=== PATIENT | female | born 1970 | race Caucasian/White ===

== ENCOUNTER 2017-10-02 23:26 | Inpatient (IN) | payer MEDICARE, OTHER ==
[~2017-10-02] VITALS: Ht 160 cm; Wt 84.8 kg
[2017-10-02] MEDS ORDERED: PANTOPRAZOLE 40 MG 10ML VIAL IV STA (23:50)
[2017-10-03 00:14] LABS: BASOPHILS % 0.6 % (0.0-1.0); EOSINOPHILS # (AUTO) 0.1 (0.0-0.4); EOSINOPHILS % 1.1 % (0.0-6.0); HEMATOCRIT 39.3 % (34.2-44.1); HEMOGLOBIN 12.5 g/dL (12.0-16.0); LYMPHOCYTES # (AUTO) 2.1 (1.0-3.2); LYMPHOCYTES % 29.3 % (18.0-39.1); MEAN CORPUSCULAR HEMOGLOBIN 27.1 pg (28-32); MEAN CORPUSCULAR HGB CONC 31.8 g/dL (31-35); MEAN CORPUSCULAR VOLUME 85.2 fL (81-99); MONOCYTES # (AUTO) 0.5 (0.2-0.8); MONOCYTES % 6.7 % (4.4-11.3); NEUTROPHILS # (AUTO) 4.3 (2.1-6.9); NEUTROPHILS % 62.2 % (38.7-80.0); PLATELET COUNT 186 x10e3/uL (140-360); RED BLOOD COUNT 4.61 x10e6/uL (3.6-5.1); RED CELL DISTRIBUTION WIDTH 13.1 % (11.7-14.4)
[2017-10-03 00:19] LABS: BILIRUBIN,URINE NEGATIVE (NEGATIVE); KETONES,URINE NEGATIVE (NEGATIVE); LEUKOCYTE ESTERASE ,URINE NEGATIVE (NEGATIVE); NITRITE,URINE NEGATIVE (NEGATIVE); PREGNANCY TEST, URINE NEGATIVE (NEGATIVE); PROTEIN,URINE DIPSTICK NEGATIVE (NEGATIVE); URINE UROBILINOGEN 0.2 mg/dL (0.2 - 1)
[2017-10-03 00:24] LABS: COLOR,URINE YELLOW (YELLOW)
[2017-10-03 00:25] LABS: CLARITY,URINE CLEAR (CLEAR)
[2017-10-03 00:31] LABS: BACTERIA,URINE FEW /HPF; EPITHELIAL CELLS,URINE FEW /LPF; RBC,URINE 0-5 /HPF (0-5); WBC,URINE (MAN) 0-5 /HPF (0-5)
[2017-10-03 00:32] LABS: ALANINE AMINOTRANSFERASE 13 IU/L (0-55); ALBUMIN 4.3 g/dL (3.5-5.0); ALBUMIN/GLOBULIN RATIO 1.3 (0.8-2.0); ALKALINE PHOSPHATASE 77 IU/L (40-150); AMYLASE 345 U/L (25-125); ANION GAP 14.5 mmol/L (8-16); BLOOD UREA NITROGEN 8 mg/dL (7-26); BUN/CREATININE RATIO 11 (6-25); CARBON DIOXIDE 26 mmol/L (22-29); CHLORIDE 102 mmol/L (98-107); CREATININE, SERUM 0.76 mg/dL (0.57-1.11); EST GLOMERULAR FILTRATION RATE > 60 ML/MIN (60-); GLUCOSE 89 mg/dL (74-118); LIPASE 488 U/L (8-78); POTASSIUM 3.5 mmol/L (3.5-5.1); SODIUM 139 mmol/L (136-145)
[2017-10-03] MEDS ORDERED: ONDANSETRON HCL INJ 2 MG/ML VIAL IV STA (00:45)
[2017-10-03] MEDS ORDERED: SODIUM CHLORIDE 0.9% 1000ML 1,000 ML IV ONE (00:45)
[2017-10-03] MEDS ORDERED: MORPHINE SULFATE 2 MG/ML SYR IV STA (00:45)
[2017-10-03] MEDS ORDERED: TYLENOL WITH C1 EACH PO (01:05)
--- NOTE | 2017-10-03 01:34 | Diagnostic Imaging Report ---
EXAM: ABDOMEN ACUTE SERIES W/PA CXR, AP view of the chest, supine and erect views of the abdomen DATE: 10/03/2017 12:30 AM Time stamp on exam: 0105 hours INDICATION: Upper abdominal pain for 3 weeks COMPARISON: May 22, 2017 FINDINGS: LINES/TUBES: None LUNGS: No consolidations or edema. PLEURA: No effusions or pneumothorax. HEART AND MEDIASTINUM: The heart is at the upper limits of normal in size. BOWEL PATTERN: Non-obstructed bowel gas pattern. BONES AND SOFT TISSUES: No acute bone findings. No abnormal calcifications. No mass effect. Surgical clips right upper quadrant of the abdomen. IMPRESSION: No acute thoracic abnormality. No evidence for bowel obstruction. Signed by: Dr. Uma Waldron M.D. on 10/03/2017 1:30 AM
[2017-10-03] MEDS: SODIUM CHLORIDE 0.9% 1000ML 1,000 ML IV SCH ×6 (02:51→23:20)
--- NOTE | 2017-10-03 03:10 | Diagnostic Imaging Report ---
EXAM: US GALLBLADDER DATE: 10/03/2017 12:00 AM Time stamp on exam: 0227 hours INDICATION: Abdominal pain COMPARISON: None TECHNIQUE: Transverse and longitudinal sonographic images of the right upper abdomen were obtained. FINDINGS: LIVER: 16 cm in the right midclavicular line. Normal echogenicity, normal contour, no masses. Main Portal Vein: Normal size with hepatopetal flow. GALLBLADDER: Cholecystectomy. No fluid in the gallbladder bed. BILE DUCTS: No intra nor extra-hepatic dilation. Common bile duct measures 0.6 cm. PANCREAS: Visualized portions are normal. RIGHT KIDNEY: 10.6 cm in length Echogenicity: Normal Collecting System: No hydronephrosis Stones: None Cyst/Mass: None FREE FLUID: None in the right upper quadrant of the abdomen IMPRESSION: Normal appearance of right upper quadrant status post cholecystectomy. Signed by: Dr. Uma Waldron M.D. on 10/03/2017 3:06 AM
[2017-10-03] MEDS: MORPHINE SULFATE 2 MG/ML SYR IV PRN ×4 (04:37→20:15)
[2017-10-03] MEDS: ONDANSETRON HCL INJ 2 MG/ML VIAL IV PRN ×4 (04:37→20:15)
--- NOTE | 2017-10-03 11:19 | History and Physical ---
She is a 46-year-old female patient of mine who presented to the emergency room with complaint of abdominal pain. HISTORY OF PRESENT ILLNESS: Ms. Lee is a 46-year-old female patient who has chronic abdominal pain, which started worsening 3 weeks ago. For the last 2 days, the patient's pain was more severe. The patient had gone to [place] ER for the same problem, and the patient was discharged from the ED. Now, the patient presented again here at [facility] ER with abdominal pain, 7 out of 10 in severity, and nauseous. Denies any vomiting or diarrhea. PAST MEDICAL HISTORY: The patient had severe abdominal pain. For that, the patient had gallbladder surgery done. Multiple endoscopies were done. Past medical history of hypertension, asthma, and hyperlipidemia. REVIEW OF SYSTEMS: Abdominal pain and nausea. PAST SURGICAL HISTORY: Gallbladder surgery. MEDICATIONS: See from the list. ALLERGIES: IBUPROFEN AND TYLENOL. SOCIAL HISTORY: The patient is a smoker. Denies using alcohol. FAMILY HISTORY: Hypertension. PHYSICAL EXAMINATION GENERAL: She is a middle-aged female patient lying in bed, not in any acute distress. VITAL SIGNS: Temperature 99, pulse rate 88, respirations 16, blood pressure 120/70. HEENT: Normocephalic, atraumatic. LUNGS: Bilateral equal air entry, no rales, no rhonchi. HEART: S1 and S2, regular. ABDOMEN: Soft. Bowel sounds are present. No tenderness. NEUROLOGIC: No focal neurological deficit. ADMISSION IMPRESSION AND DIAGNOSES 1. Acute pancreatitis. 2. Gastritis. 3. Dehydration. 4. Hypertension. 5. Bronchial asthma by history. PLAN: The patient will be admitted with the above diagnoses. The patient will be kept n.p.o. on IV fluids. Analgesics will be given. Zofran will be given. Will obtain GI consult with Dr. Winter, and we will obtain an MRCP to rule out any CBD stone. Job#: [id number]
[2017-10-03] MEDS ORDERED: GADOBENATE DIMEGLUMINE 1 ML IV ONE (12:32)
[2017-10-03] MEDS ORDERED: SUCRALFATE1 GM PO (15:23)
[2017-10-03] MEDS ORDERED: OMEPRAZOLE40 MG PO (15:23)
[2017-10-03] MEDS ORDERED: PAROXETINE HCL20 MG PO (15:23)
[2017-10-03] MEDS ORDERED: PRAVASTATIN SOD20 MG PO (15:23)
--- NOTE | 2017-10-03 15:39 | Diagnostic Imaging Report ---
EXAM: MRI of the abdomen with and without contrast. INDICATION: Abdominal pain. COMPARISON: Ultrasound dated 10/03/2017. TECHNIQUE: Multiplanar and multisequence imaging was performed of the abdomen. MRCP series were added. IV Contrast: 18 cc of MultiHance. Discussion: LOWER THORAX: Unremarkable. HEPATOBILIARY: No focal hepatic lesions. Common bile left is mildly distended up to 8 mm without evidence of filling defect. Tiny questionable filling defect within distal common bile duct, seen only on series 4 , image 16, is probably artifactual as it is not evident on MRCP series. GALLBLADDER: Surgically absent. SPLEEN: No splenomegaly. PANCREAS: No focal masses or ductal dilatation. ADRENALS: No adrenal nodules KIDNEYS/URETERS: Kidneys enhance symmetrically. No hydronephrosis. No cystic or solid mass lesions. GI TRACT: Visualized bowel loops are unremarkable. No evidence of bowel obstruction. LYMPH NODES: No lymphadenopathy. VESSELS: Unremarkable. PERITONEUM / RETROPERITONEUM: No free air or fluid. BONES: Unremarkable. SOFT TISSUES: Unremarkable. IMPRESSION: No acute inflammatory process in the abdomen. Status post cholecystectomy. Mild common bile duct dilatation, likely due to postcholecystectomy reservoir effects. No definite evidence of choledocholithiasis. Signed by: Dr. Roosevelt Jerome MD on 10/03/2017 3:35 PM
[2017-10-04] MEDS: ONDANSETRON HCL INJ 2 MG/ML VIAL IV PRN ×2 (02:05→09:08)
[2017-10-04] MEDS: MORPHINE SULFATE 2 MG/ML SYR IV PRN ×2 (02:05→09:08)
[2017-10-04 03:13] LABS: BASOPHILS % 0.8 % (0.0-1.0); EOSINOPHILS # (AUTO) 0.1 (0.0-0.4); EOSINOPHILS % 2.6 % (0.0-6.0); HEMATOCRIT 33.2 % (34.2-44.1); HEMOGLOBIN 10.4 g/dL (12.0-16.0); LYMPHOCYTES # (AUTO) 1.5 (1.0-3.2); LYMPHOCYTES % 37.9 % (18.0-39.1); MEAN CORPUSCULAR HEMOGLOBIN 27.2 pg (28-32); MEAN CORPUSCULAR HGB CONC 31.3 g/dL (31-35); MEAN CORPUSCULAR VOLUME 86.7 fL (81-99); MONOCYTES # (AUTO) 0.3 (0.2-0.8); MONOCYTES % 7.2 % (4.4-11.3); NEUTROPHILS % 51.2 % (38.7-80.0); PLATELET COUNT 131 x10e3/uL (140-360); RED BLOOD COUNT 3.83 x10e6/uL (3.6-5.1); RED CELL DISTRIBUTION WIDTH 13.3 % (11.7-14.4)
[2017-10-04 03:47] LABS: ALANINE AMINOTRANSFERASE 8 IU/L (0-55); ALBUMIN 3.2 g/dL (3.5-5.0); ALBUMIN/GLOBULIN RATIO 1.2 (0.8-2.0); ALKALINE PHOSPHATASE 62 IU/L (40-150); AMYLASE 59 U/L (25-125); ANION GAP 9.8 mmol/L (8-16); BLOOD UREA NITROGEN 11 mg/dL (7-26); BUN/CREATININE RATIO 16 (6-25); CARBON DIOXIDE 21 mmol/L (22-29); CHLORIDE 112 mmol/L (98-107); EST GLOMERULAR FILTRATION RATE > 60 ML/MIN (60-); GLUCOSE 80 mg/dL (74-118); LIPASE 12 U/L (8-78); POTASSIUM 3.8 mmol/L (3.5-5.1); SODIUM 139 mmol/L (136-145)
[2017-10-04] MEDS: SODIUM CHLORIDE 0.9% 1000ML 1,000 ML IV SCH ×3 (05:50→11:23)
[2017-10-04] MEDS ORDERED: ACETAMINOPHEN/CODEINE 300MG - 30MG TAB PO PRN (09:45)
--- NOTE | 2017-10-04 10:58 | Discharge Summary ---
This 46-year-old female patient presented to the emergency room with abdominal pain. ADMITTING IMPRESSION AND DIAGNOSES 1. Pancreatitis. 2. Gastritis. HOSPITAL COURSE SUMMARY: The patient was admitted with abdominal pain. The patient had recurrent abdominal pain, and the patient had multiple hospital visits and gallbladder surgery for that. The patient was recently in the ER at [facility]. The patient had high amylase and lipase, so the patient was admitted and kept n.p.o. IV fluids were given. MRCP was done, which were negative for a CBD stone. The patient improved symptomatically. The patient will have a GI evaluation with Dr. Winter, and then the patient will be discharged home on omeprazole, Carafate and Tylenol p.r.n. for pain. The patient will be followed up as an outpatient. ZOILA ARMIJO MD Job#: [id number]
[2017-10-04 12:09] VITALS: BP 145/88
[2017-10-04] MEDS ORDERED: PRAVASTATIN 20 MG TAB PO SCH (21:00)
[2017-10-05] MEDS ORDERED: SUCRALFATE 1 GM TAB PO SCH (09:00)
[2017-10-05] MEDS ORDERED: NON-FORMULARY MEDICATION (Pravastatin Sodium 20 MG) PO SCH (09:00)
[2017-10-05] MEDS ORDERED: PAROXETINE HCL 20 MG TAB PO SCH (09:00)
[2017-10-05] MEDS ORDERED: PANTOPRAZOLE SOD 40 MG TABEC PO SCH (09:00)
--- OUTSIDE RECORDS SUMMARY | 2017-10-21 11:24 | XMS REPORT ---
Author Author [facility] Address Unknown Phone Unavailable Care Team Providers Care Meter Supervisor Name Role Phone ZOILA ARMIJO Unavailable Unavailable ERICH CARDENAS Unavailable Unavailable Problems This patient has no known problems. Allergies, Adverse Reactions, Alerts This patient has no known allergies or adverse reactions. Medications This patient has no known medications. Results Test Description Test Time Test Comments Text Results Atomic Results Result Comments MRI MRCP [place] [address] Patient Name: JASPREET ASENCIO MR #: [id number] : 1970 Age/Sex: 46/F Req #: [id number] [facility] Physician: ZOILA ARMIJO MD Ordered by: ZOILA ARMIJO MD Report #: [id number] Location: [facility] Room/Bed: [place] [address] ___ Procedure: [id number] MRI/MRI MRCP [facility] Exam Date: 10/03/17 Exam Time: 1316 REPORT STATUS: Signed EXAM: MRI of the abdomen with and without contrast. INDICATION: Abdominal pain. COMPARISON: Ultrasound dated 10/03/2017. TECHNIQUE: Multiplanar and multisequence imaging was performed of the abdomen. MRCP series were added. IV Contrast: 18 cc of MultiHance. Discussion: LOWER THORAX: Unremarkable. HEPATOBILIARY: No focal hepatic lesions. Common bile left is mildly distended up to 8 mm without evidence of filling defect. Tiny questionable filling defect within distal common bile duct, seen only on series 4 , image 16, is probably artifactual as it is not evident on MRCP series. GALLBLADDER: Surgically absent. SPLEEN: No splenomegaly. PANCREAS: No focal masses or ductal dilatation. ADRENALS: No adrenal nodules KIDNEYS/URETERS: Kidneys enhance symmetrically. No hydronephrosis. No cystic or solid mass lesions. GI TRACT: Visualized bowel loops are unremarkable. No evidence of bowel obstruction. LYMPH NODES: No lymphadenopathy. VESSELS: Unremarkable. PERITONEUM / RETROPERITONEUM: No free air or fluid. BONES: Unremarkable. SOFT TISSUES: Unremarkable. IMPRESSION: No acute inflammatory process in the abdomen. Status post cholecystectomy. Mild common bile duct dilatation, likely due to postcholecystectomy reservoir effects. No definite evidence of choledocholithiasis. Signed by: Dr. Roosevelt Liang MD on 10/03/2017 3:35 PM Dictated By: ROOSEVELT LIANG MD 1535 Transcribed By: ARIC on 1535 COPY TO: ZOILA ARMIJO MD ABDOMEN ACUTE SERIES W/PA CXR [place] [address] Patient Name: JASPREET ASENCIO MR #: [id number] : 1970 Age/Sex: 46/F Req #: [id number] Adm Physician: Ordered by: IWONA SMITH MD Report #: [id number] Location: ER Room/Bed: ___ Procedure: [id number] DX/ABDOMEN ACUTE SERIES W/PA CXR Exam Date: Exam Time: 0105 REPORT STATUS: Signed EXAM: ABDOMEN ACUTE SERIES W/PA CXR, AP view of the chest, supine and erect views of the abdomen DATE: 10/03/2017 12:30 AM Time stamp on exam: 0105 hours INDICATION: Upper abdominal pain for 3 weeks COMPARISON: May 22, 2017 FINDINGS: LINES/TUBES: None LUNGS: No consolidations or edema. PLEURA: No effusions or pneumothorax. HEART AND MEDIASTINUM: The heart is at the upper limits of normal in size. BOWEL PATTERN: Non-obstructed bowel gas pattern. BONES AND SOFT TISSUES: No acute bone findings. No abnormal calcifications. No mass effect. Surgical clips right upper quadrant of the abdomen. IMPRESSION: No acute thoracic abnormality. No evidence for bowel obstruction. Signed by: Dr. Saulo Waldron M.D. on 10/03/2017 1:30 AM Dictated By: SAULO WALDRON MD 9 Transcribed By: ARIC on 129 COPY TO: IWONA SMITH MD US GALLBLADDER [place] [address] Patient Name: JASPREET ASENCIO MR #: [id number] : 1970 Age/Sex: 46/F Req #: [id number] Adm Physician: ZOILA ARMIJO MD Ordered by: IWONA SMITH MD Report #: [id number] Location: [facility] Room/Bed: [place] [address] ____ Procedure: [id number] US/US GALLBLADDER Exam Date: Exam Time: REPORT STATUS: Signed EXAM: US GALLBLADDER DATE: 10/03/2017 12:00 AM Time stamp on exam: 0227 hours INDICATION: Abdominal pain COMPARISON: None TECHNIQUE: Transverse and longitudinal sonographic images of the right upper abdomen were obtained. FINDINGS: LIVER: 16 cm in the right midclavicular line. Normal echogenicity, normal contour, no masses. Main Portal Vein: Normal size with hepatopetal flow. GALLBLADDER: Cholecystectomy. No fluid in the gallbladder bed. BILE DUCTS: No intra nor extra-hepatic dilation. Common bile duct measures 0.6 cm. PANCREAS: Visualized portions are normal. RIGHT KIDNEY: 10.6 cm in length Echogenicity: Normal Collecting System: No hydronephrosis Stones: None Cyst/Mass: None FREE FLUID: None in the right upper quadrant of the abdomen IMPRESSION: Normal appearance of right upper quadrant status post cholecystectomy. Signed by: Dr. Saulo Waldron M.D. on 10/03/2017 3:06 AM Dictated By: SAULO WALDRON MD 5 Transcribed By: ARIC on 10/03/17305 COPY TO: IWONA SMITH MD ABDOMEN ACUTE SERIES W/PA CXR [place] [address] Patient Name: JASPREET ASENCIO MR #: [id number] : 1970 Age/Sex: 46/F Req #: [id number] Adm Physician: Ordered by: IWONA SMITH MD Report #: [id number] Location: ER Room/Bed: ___ Procedure: [id number] DX/ABDOMEN ACUTE SERIES W/PA CXR Exam Date: Exam Time: 1939 REPORT STATUS: Signed ABDOMEN ACUTE SERIES W/PA CXR Clinical history: Abdominal pain Technique : AP view abdomen Comparison: None Findings: Abdomen: Nonobstructive bowel gas pattern. No free air. Incidental right pelvic phlebolith. Chest : Mildly enlarged cardiac silhouette. Otherwise normal appearance of the mediastinum, lungs, pleural spaces. Impression: No evidence of obstruction or free air. Signed by: Dr Reema Mcgee MD on 05/22/2017 8:07 PM Dictated By: REEMA MCGEE MD 06 Transcribed By: ARIC on 05/22/172006 COPY TO: IWONA SMITH MD
== END 2017-10-04 12:26 | disposition home or self-care (01) | DRG 440 ==
LOC: ER 23:26 → ERHOLD 10-03 01:01 → UNDOADMIN 10-03 01:38 → ERHOLD 10-03 15:32 → EDBEDREQ 10-04 04:51 → ER 10-04 12:26
PROVIDERS: ADMIT Internal Medicine; ATTEND Internal Medicine
DX: K85.90 Acute pancreatitis without necrosis or infection, unspecified (principal); E78.5 Hyperlipidemia, unspecified; E86.0 Dehydration; I10 Essential (primary) hypertension; J45.909 Unspecified asthma, uncomplicated; K29.70 Gastritis, unspecified, without bleeding
CPT/HCPCS: 36415; 74022; 74183; 76705; 80053; 81001; 81025; 82150; 83690; 85025; 87086; 96360; 96374; 96376; 99284; J2270; J2405; J7030

== ENCOUNTER 2017-10-06 02:21 | Emergency (ER) | payer MEDICARE, OTHER ==
[~2017-10-06] VITALS: Ht 160 cm; Wt 84.8 kg
[~2017-10-06 02:21] MED LIST: OMEPRAZOLE40 MG PO; PAROXETINE HCL20 MG PO; PRAVASTATIN SOD20 MG PO; SUCRALFATE1 GM PO; TYLENOL WITH C1 EACH PO
[2017-10-06 03:43] LABS: BASOPHILS % 0.4 % (0.0-1.0); EOSINOPHILS # (AUTO) 0.1 (0.0-0.4); EOSINOPHILS % 1.6 % (0.0-6.0); HEMATOCRIT 36.9 % (34.2-44.1); HEMOGLOBIN 11.7 g/dL (12.0-16.0); LYMPHOCYTES # (AUTO) 1.8 (1.0-3.2); LYMPHOCYTES % 35.3 % (18.0-39.1); MEAN CORPUSCULAR HEMOGLOBIN 27.3 pg (28-32); MEAN CORPUSCULAR HGB CONC 31.7 g/dL (31-35); MONOCYTES # (AUTO) 0.5 (0.2-0.8); MONOCYTES % 9.3 % (4.4-11.3); NEUTROPHILS # (AUTO) 2.7 (2.1-6.9); PLATELET COUNT 163 x10e3/uL (140-360); RED BLOOD COUNT 4.29 x10e6/uL (3.6-5.1); RED CELL DISTRIBUTION WIDTH 13.2 % (11.7-14.4)
[2017-10-06 03:44] LABS: BILIRUBIN,URINE NEGATIVE (NEGATIVE); CLARITY,URINE CLEAR (CLEAR); COLOR,URINE STRAW (YELLOW); KETONES,URINE NEGATIVE (NEGATIVE); LEUKOCYTE ESTERASE ,URINE NEGATIVE (NEGATIVE); NITRITE,URINE NEGATIVE (NEGATIVE); PROTEIN,URINE DIPSTICK NEGATIVE (NEGATIVE); URINE UROBILINOGEN 0.2 mg/dL (0.2 - 1)
[2017-10-06 03:53] LABS: BACTERIA,URINE RARE /HPF; EPITHELIAL CELLS,URINE FEW /LPF; RBC,URINE 0-5 /HPF (0-5); WBC,URINE (MAN) 0-5 /HPF (0-5)
[2017-10-06 04:02] LABS: ALANINE AMINOTRANSFERASE 9 IU/L (0-55); ALBUMIN 3.9 g/dL (3.5-5.0); ALBUMIN/GLOBULIN RATIO 1.3 (0.8-2.0); ALKALINE PHOSPHATASE 71 IU/L (40-150); AMYLASE 54 U/L (25-125); ANION GAP 11.7 mmol/L (8-16); BLOOD UREA NITROGEN 5 mg/dL (7-26); BUN/CREATININE RATIO 7 (6-25); CALCIUM 8.9 mg/dL (8.4-10.2); CARBON DIOXIDE 26 mmol/L (22-29); CHLORIDE 106 mmol/L (98-107); CREATININE, SERUM 0.75 mg/dL (0.57-1.11); EST GLOMERULAR FILTRATION RATE > 60 ML/MIN (60-); GLUCOSE 110 mg/dL (74-118); LIPASE 16 U/L (8-78); POTASSIUM 3.7 mmol/L (3.5-5.1); SODIUM 140 mmol/L (136-145)
== END 2017-10-06 04:30 | disposition home or self-care (01) ==
LOC: ER 02:21
DX: R10.13 Epigastric pain (principal); R11.2 Nausea with vomiting, unspecified; I10 Essential (primary) hypertension; J45.909 Unspecified asthma, uncomplicated
CPT/HCPCS: 36415; 80053; 81001; 82150; 83690; 85025; 87086; 99283

== ENCOUNTER 2017-12-15 20:27 | Emergency (ER) | payer MEDICARE, OTHER ==
[~2017-12-15] VITALS: Ht 160 cm; Wt 84.8 kg
--- OUTSIDE RECORDS SUMMARY | 2017-12-15 20:29 | XMS REPORT | Continuity of Care Document ---
Author Author [facility] Organization [facility] Address [address] [place] [address] Phone Unavailable Care Team Providers Care Superintendent [employer] Name Role Phone ZOILA ARMIJO MD PCP Insurance Providers Guarantor Preethi Lee Address [address] [place] [address] Email PTDECLINED Payer [employer] Policy Number [id number] Subscriber's Name Preethi Lee Relationship 18 Self / Same As Patient Group Number [id number] Group Name UNEMPLOYED Effective Date 15 Payer Medicare A & B Policy Number [id number] Subscriber's Name Preethi Lee Relationship 18 Self / Same As Patient Group Number [id number] Group Name UNEMPLOYED Effective Date 08 Advance Directives Directive Response Recorded Date/Time Does the patient have an advance directive? No 11/12/16 11:02pm If yes, is advance directive on file with [facility]? No 11/12/16 11:02pm If not on file with [facility] will patient provide a copy? No 11/12/16 11:02pm Do you have a Directive to Physician? No 10/06/17 5:45am Do you have a Medical Power of Valet Attendant? No 10/06/17 5:45am Do you have an out of hospital Do Not Resuscitate Order? No 10/06/17 5:45am Do you have any special needs we should be aware of? No 10/06/17 5:45am Do you have a support person here with you today? No 10/06/17 5:45am Did patient receive Notice of Privacy Practices? Yes 10/06/17 5:45am Did patient receive patient rights and responsibilities? Yes 10/06/17 5:45am Problems Medical Problem Onset Date Status Pancreatitis Unknown Medications Current Home Medications Medication Dose Units Route Directions Days Qty Instructions Start Date Acetaminophen With Codeine (Tylenol With Codeine #3 Tablet) 1 Each Tablet 300 Mg Oral Every 6 Hours as needed for Pain Omeprazole 40 Mg Capsule.dr 40 Mg Oral Daily Paroxetine Hcl 20 Mg Tablet 30 Mg Oral Daily 30 Tab Pravastatin Sodium 20 Mg Tablet 20 Mg Oral Daily Sucralfate 1 Gm Tablet 1 Tab Oral Daily Social History Smoking Status Start Date Stop Date Never Smoker Hospital Discharge Instructions No hospital discharge instruction information available. Plan of Care Discharge Date 10/06/17 4:30am Disposition HOME, SELF-CARE Condition at Discharge Stable Instructions/Education Provided Abdominal Pain - Adult Forms Provided Work/School Excuse Prescriptions See Medication Section Additional Instructions/Education FOLLOW UP WITH YOUR PRIMARY CARE DOCTOR CALL FOR APPT TAKE MEDICATIONS PRESCRIBED Functional Status No functional status information available. Allergies, Adverse Reactions, Alerts Allergen Type Severity Reaction Status Last Updated Acetaminophen Allergy Unknown Active 05/22/17 Ibuprofen Allergy Unknown Active 05/22/17 Immunizations No immunization information available. Vital Signs Acute Vital Signs Vital Response Date/Time Temperature (Fahrenheit) 98.0 degrees F (97.6 - 99.5) 10/04/2017 12:09pm Pulse Pulse Rate (adult) 82 bpm (60 - 90) 10/04/2017 12:09pm Respiratory Rate 18 bpm (12 - 24) 10/04/2017 12:09pm Blood Pressure 145/88 mm Hg 10/04/2017 12:09pm Height 5 ft 3 in 10/06/2017 2:50am Weight 187 lb 10/06/2017 2:50am Body Mass Index 33.1 kg/m^2 10/06/2017 2:50am Results Laboratory Results Test Name Result Units Flags Reference Collection Date/Time Result Date/ Time Comments Urine Test NEGATIVE NEGATIVE 10/03/2017 12:10am 10/03/2017 12:19am White Blood Count 5.15 x10e3/uL 4.8-10.8 10/06/2017 3:35am 10/06/2017 3 :43am Red Blood Count 4.29 x10e6/uL 3.6-5.1 10/06/2017 3:35am 10/06/2017 3: 43am Hemoglobin 11.7 g/dL L 12.0-16.0 10/06/2017 3:35am 10/06/2017 3:43am Hematocrit 36.9 % 34.2-44.1 10/06/2017 3:35am 10/06/2017 3:43am Mean Corpuscular Volume 86.0 fL 81-99 10/06/2017 3:35am 10/06/2017 3: 43am Mean Corpuscular Hemoglobin 27.3 pg L 28-32 10/06/2017 3:35am 2017 3:43am Mean Corpuscular Hemoglobin Concent 31.7 g/dL 31-35 10/06/2017 3:35am 10/06/2017 3:43am Red Cell Distribution Width 13.2 % 11.7-14.4 10/06/2017 3:35am 2017 3:43am Platelet Count 163 x10e3/uL 140-360 10/06/2017 3:35am 10/06/2017 3: 43am Neutrophils (%) (Auto) 53.0 % 38.7-80.0 10/06/2017 3:35am 10/06/2017 3: 43am Lymphocytes (%) (Auto) 35.3 % 18.0-39.1 10/06/2017 3:35am 10/06/2017 3: 43am Monocytes (%) (Auto) 9.3 % 4.4-11.3 10/06/2017 3:35am 10/06/2017 3: 43am Eosinophils (%) (Auto) 1.6 % 0.0-6.0 10/06/2017 3:35am 10/06/2017 3: 43am Basophils (%) (Auto) 0.4 % 0.0-1.0 10/06/2017 3:35am 10/06/2017 3:43am IM GRANULOCYTES % 0.4 % 0.0-1.0 10/06/2017 3:35am 10/06/2017 3:43am Neutrophils # (Auto) 2.7 2.1-6.9 10/06/2017 3:35am 10/06/2017 3:43am Lymphocytes # (Auto) 1.8 1.0-3.2 10/06/2017 3:35am 10/06/2017 3:43am Monocytes # (Auto) 0.5 0.2-0.8 10/06/2017 3:35am 10/06/2017 3:43am Eosinophils # (Auto) 0.1 0.0-0.4 10/06/2017 3:35am 10/06/2017 3:43am Basophils # (Auto) 0.0 0.0-0.1 10/06/2017 3:35am 10/06/2017 3:43am Absolute Immature Granulocyte (auto 0.02 x10e3/uL 0-0.1 10/06/2017 3: 35am 10/06/2017 3:43am Urine Color STRAW YELLOW 10/06/2017 3:35am 10/06/2017 3:44am Urine Clarity CLEAR CLEAR 10/06/2017 3:35am 10/06/2017 3:44am Urine Specific [place] 1.005 L 1.010-1.025 10/06/2017 3:35am 2017 3:44am Urine pH 7 5 - 7 10/06/2017 3:35am 10/06/2017 3:44am Urine Leukocyte Esterase NEGATIVE NEGATIVE 10/06/2017 3:35am 2017 3:44am Urine Nitrite NEGATIVE NEGATIVE 10/06/2017 3:35am 10/06/2017 3:44am Urine Protein NEGATIVE NEGATIVE 10/06/2017 3:35am 10/06/2017 3:44am Urine Glucose (UA) NEGATIVE NEGATIVE 10/06/2017 3:35am 10/06/2017 3: 44am Urine Ketones NEGATIVE NEGATIVE 10/06/2017 3:35am 10/06/2017 3:44am Urine Urobilinogen 0.2 mg/dL 0.2 - 1 10/06/2017 3:35am 10/06/2017 3: 44am Urine Bilirubin NEGATIVE NEGATIVE 10/06/2017 3:35am 10/06/2017 3: 44am Urine Blood NEGATIVE NEGATIVE 10/06/2017 3:35am 10/06/2017 3:44am Urine WBC 0-5 /HPF 0-5 10/06/2017 3:35am 10/06/2017 3:53am Urine RBC 0-5 /HPF 0-5 10/06/2017 3:35am 10/06/2017 3:53am Urine Bacteria RARE /HPF NONE 10/06/2017 3:35am 10/06/2017 3:53am Urine Epithelial Cells FEW /LPF NONE 10/06/2017 3:35am 10/06/2017 3: 53am Sodium Level 140 mmol/L 136-145 10/06/2017 3:35am 10/06/2017 4:02am Potassium Level 3.7 mmol/L 3.5-5.1 10/06/2017 3:35am 10/06/2017 4:02am Chloride Level 106 mmol/L 98-107 10/06/2017 3:35am 10/06/2017 4:02am Carbon Dioxide Level 26 mmol/L 22-29 10/06/2017 3:35am 10/06/2017 4: 02am Anion Gap 11.7 mmol/L 8-16 10/06/2017 3:35am 10/06/2017 4:02am Blood Urea Nitrogen 5 mg/dL L 7-26 10/06/2017 3:35am 10/06/2017 4:02am Creatinine 0.75 mg/dL 0.57-1.11 10/06/2017 3:35am 10/06/2017 4:02am BUN/Creatinine Ratio 7 6-25 10/06/2017 3:35am 10/06/2017 4:02am Estimat Glomerular Filtration Rate > 60 ML/MIN 60- 10/06/2017 3:35am 4:02am Ranges were taken from the National Kidney Disease Education Program and the National Kid[employer] Foundation literature. Reference ranges: 60 or greater: Normal 16-59 (for 3 consecutive months): Chronic kidney disease 15 or less: Kidney failure Glucose Level 110 mg/dL 74-118 10/06/2017 3:35am 10/06/2017 4:02am Calcium Level 8.9 mg/dL 8.4-10.2 10/06/2017 3:35am 10/06/2017 4:02am Total Bilirubin < 0.3 mg/dL 0.2-1.2 10/06/2017 3:35am 10/06/2017 4: 02am Aspartate Amino Transf (AST/SGOT) 14 IU/L 5-34 10/06/2017 3:35am 2017 4:02am Alanine Aminotransferase (ALT/SGPT) 9 IU/L 0-55 10/06/2017 3:35am 10/06 4:02am Total Protein 7.0 g/dL 6.5-8.1 10/06/2017 3:35am 10/06/2017 4:02am Albumin 3.9 g/dL 3.5-5.0 10/06/2017 3:35am 10/06/2017 4:02am Globulin 3.1 g/dL 2.3-3.5 10/06/2017 3:35am 10/06/2017 4:02am Albumin/Globulin Ratio 1.3 0.8-2.0 10/06/2017 3:35am 10/06/2017 4: 02am Alkaline Phosphatase 71 IU/L 40-150 10/06/2017 3:35am 10/06/2017 4: 02am Amylase Level 54 U/L 25-125 10/06/2017 3:35am 10/06/2017 4:02am Lipase 16 U/L 8-78 10/06/2017 3:35am 10/06/2017 4:02am Procedures Procedure Status Date Provider(s) gallbladder Active 10/03/17 IWONA SMITH MD Magnetic resonance cholangiopancreatography (MRCP) without then with contrast Active 10/03/17 ZOILA ARMIJO MD Encounters Encounter Location Arrival/Admit Date Discharge/Depart Date Attending Provider Departed Emergency Room [facility] 10/06/17 2:21am 4:30am BUSHRA HEALY MD Discharged Inpatient [facility] 10/03/17 1:01am 10/04/17 12:26pm ZOILA ARMIJO MD Departed Emergency Room [facility] 05/22/17 6:09pm 9:19pm ERICH CARDENAS MD
[2017-12-15 22:15] LABS: BILIRUBIN,URINE NEGATIVE (NEGATIVE); CLARITY,URINE SL CLOUDY (CLEAR); COLOR,URINE YELLOW (YELLOW); KETONES,URINE NEGATIVE (NEGATIVE); LEUKOCYTE ESTERASE ,URINE NEGATIVE (NEGATIVE); NITRITE,URINE NEGATIVE (NEGATIVE); PROTEIN,URINE DIPSTICK NEGATIVE (NEGATIVE); URINE UROBILINOGEN 0.2 mg/dL (0.2 - 1)
[2017-12-15 22:19] LABS: AMPHETAMINES SCREEN,URINE NEGATIVE (NEGATIVE); BENZODIAZEPINES SCREEN,URINE NEGATIVE (NEGATIVE); PHENCYCLIDINE SCREEN,URINE NEGATIVE (NEGATIVE)
[2017-12-15 22:24] LABS: EPITHELIAL CELLS,URINE MODERATE /LPF
--- NOTE | 2017-12-15 22:46 | Diagnostic Imaging Report ---
CHEST 2 VIEWS, Technique: CHEST 2 VIEWS Comparison: 10/03/2017 Clinical history: Chest pain DISCUSSION: Lateral is mildly degraded by motion. Stable appearance of the heart, mediastinum, lungs and pleural spaces. IMPRESSION: No acute abnormality Signed by: Dr Bonny Mcgee MD on 12/15/2017 10:43 PM
== END 2017-12-16 00:25 | disposition home or self-care (01) ==
LOC: ER 20:27
DX: R05 Cough (principal); J30.2 Other seasonal allergic rhinitis; J30.1 Allergic rhinitis due to pollen; I10 Essential (primary) hypertension; J45.909 Unspecified asthma, uncomplicated; E78.5 Hyperlipidemia, unspecified
CPT/HCPCS: 71046; 80307; 81001; 99283

== ENCOUNTER 2018-03-16 17:27 | Emergency (ER) | payer MEDICARE, OTHER ==
[~2018-03-16] VITALS: Ht 160 cm; Wt 89.8 kg
[2018-03-16 18:21] LABS: BASOPHILS % 0.3 % (0.0-1.0); EOSINOPHILS # (AUTO) 0.1 (0.0-0.4); EOSINOPHILS % 1.4 % (0.0-6.0); HEMATOCRIT 39.1 % (34.2-44.1); HEMOGLOBIN 12.7 g/dL (12.0-16.0); LYMPHOCYTES # (AUTO) 1.6 (1.0-3.2); LYMPHOCYTES % 28.2 % (18.0-39.1); MEAN CORPUSCULAR HEMOGLOBIN 26.8 pg (28-32); MEAN CORPUSCULAR HGB CONC 32.5 g/dL (31-35); MEAN CORPUSCULAR VOLUME 82.7 fL (81-99); MONOCYTES # (AUTO) 0.4 (0.2-0.8); MONOCYTES % 7.3 % (4.4-11.3); NEUTROPHILS # (AUTO) 3.6 (2.1-6.9); NEUTROPHILS % 62.5 % (38.7-80.0); PLATELET COUNT 178 x10e3/uL (140-360); RED BLOOD COUNT 4.73 x10e6/uL (3.6-5.1); RED CELL DISTRIBUTION WIDTH 13.7 % (11.7-14.4)
[2018-03-16 18:23] LABS: BILIRUBIN,URINE NEGATIVE (NEGATIVE); CLARITY,URINE CLEAR (CLEAR); COLOR,URINE YELLOW (YELLOW); KETONES,URINE NEGATIVE (NEGATIVE); LEUKOCYTE ESTERASE ,URINE NEGATIVE (NEGATIVE); NITRITE,URINE NEGATIVE (NEGATIVE); PREGNANCY TEST, URINE NEGATIVE (NEGATIVE); PROTEIN,URINE DIPSTICK NEGATIVE (NEGATIVE); URINE UROBILINOGEN 0.2 mg/dL (0.2 - 1)
[2018-03-16 18:34] LABS: EPITHELIAL CELLS,URINE FEW /LPF; RBC,URINE 0-5 /HPF (0-5)
[2018-03-16 18:40] LABS: ALANINE AMINOTRANSFERASE 20 IU/L (0-55); ALBUMIN 4.3 g/dL (3.5-5.0); ALBUMIN/GLOBULIN RATIO 1.3 (0.8-2.0); ALKALINE PHOSPHATASE 85 IU/L (40-150); ANION GAP 14.8 mmol/L (8-16); BLOOD UREA NITROGEN 7 mg/dL (7-26); BUN/CREATININE RATIO 9 (6-25); CALCIUM 9.6 mg/dL (8.4-10.2); CARBON DIOXIDE 24 mmol/L (22-29); CHLORIDE 106 mmol/L (98-107); CREATININE, SERUM 0.75 mg/dL (0.57-1.11); EST GLOMERULAR FILTRATION RATE > 60 ML/MIN (60-); GLUCOSE 93 mg/dL (74-118); POTASSIUM 3.8 mmol/L (3.5-5.1); SODIUM 141 mmol/L (136-145)
[2018-03-16] MEDS ORDERED: PANTOPRAZOLE 40 MG 10ML VIAL IV STA (19:18)
[2018-03-16] MEDS ORDERED: ONDANSETRON HCL INJ 2 MG/ML VIAL IV STA (19:18)
[2018-03-16] MEDS ORDERED: DICYCLOMINE HCL 20 MG/2 ML VIAL IM ONE (19:30)
[2018-03-16] MEDS ORDERED: SODIUM CHLORIDE 0.9% 1000ML 1,000 ML IV ONE (19:30)
[2018-03-16] MEDS ORDERED: DIATRIZOATE MEGL/DIATRIZOA SOD 30 ML BTL PO ONE (19:31)
[2018-03-16 19:36] LABS: AMYLASE 60 U/L (25-125); LIPASE 24 U/L (8-78)
--- NOTE | 2018-03-16 21:47 | Diagnostic Imaging Report ---
EXAM: CT Abdomen and Pelvis WITH contrast INDICATION: Abdominal pain COMPARISON: None. TECHNIQUE: Abdomen and pelvis were scanned utilizing a multidetector helical scanner from the lung base to the pubic symphysis after administration of IV contrast. Coronal and sagittal reformations were obtained. Routine protocol was performed. Scan was performed when during portal venous phase. IV CONTRAST: 100 mL of Isovue-370 ORAL CONTRAST: Gastrografin RADIATION DOSE: Total DLP: 666.96 mGy*cm Estimated effective dose: (DLP x 0.015 x size factor) mSv COMPLICATIONS: None FINDINGS: LINES and TUBES: None. LOWER THORAX: Small sliding hiatal hernia HEPATOBILIARY: No focal hepatic lesions. No biliary ductal dilation. GALLBLADDER: There are cholecystectomy clips. SPLEEN: No splenomegaly. PANCREAS: No focal masses or ductal dilatation. ADRENALS: No adrenal nodules KIDNEYS/URETERS: Kidneys enhance symmetrically. No hydronephrosis. No cystic or solid mass lesions. No stones. GI TRACT: No abnormal distention, wall thickening, or evidence of bowel obstruction. Appendix is normal. PELVIC ORGANS/BLADDER: Unremarkable. LYMPH NODES: No lymphadenopathy. VESSELS: Unremarkable. PERITONEUM / RETROPERITONEUM: No free air or fluid. BONES: Unremarkable. SOFT TISSUES: Unremarkable. IMPRESSION: 1. No evidence of acute intra-abdominal or pelvic abnormality. 2. Small sliding hiatal hernia. Signed by: Dr. Damian Benitez M.D. on 03/16/2018 9:44 PM
[2018-03-16] MEDS ORDERED: SODIUM CHLORIDE 0.9% 50ML 50 ML ONE (22:38)
[2018-03-16] MEDS ORDERED: IOPAMIDOL 370 MG/ML 200 ML INFUS..BTL INJ ONE (22:38)
== END 2018-03-16 22:31 | disposition home or self-care (01) ==
LOC: ER 17:27
DX: R10.84 Generalized abdominal pain (principal); R11.2 Nausea with vomiting, unspecified; I10 Essential (primary) hypertension; E78.5 Hyperlipidemia, unspecified; K86.9 Disease of pancreas, unspecified
CPT/HCPCS: 36415; 74177; 80053; 81001; 81025; 82150; 83690; 85025; 99284; J0500; J2405; J7030; Q9967

== ENCOUNTER 2018-03-19 22:30 | Emergency (ER) | payer MEDICARE, OTHER ==
[~2018-03-19] VITALS: Ht 160 cm; Wt 89.8 kg
[2018-03-19] MEDS ORDERED: MORPHINE SULFATE INJ 4 MG/ML INJ IV STA (22:37)
[2018-03-19] MEDS ORDERED: ONDANSETRON HCL INJ 2 MG/ML VIAL IV STA (22:37)
[2018-03-19 23:00] LABS: BASOPHILS % 0.6 % (0.0-1.0); EOSINOPHILS # (AUTO) 0.1 (0.0-0.4); EOSINOPHILS % 1.3 % (0.0-6.0); HEMATOCRIT 37.8 % (34.2-44.1); LYMPHOCYTES # (AUTO) 1.1 (1.0-3.2); LYMPHOCYTES % 16.5 % (18.0-39.1); MEAN CORPUSCULAR HEMOGLOBIN 26.5 pg (28-32); MEAN CORPUSCULAR HGB CONC 31.7 g/dL (31-35); MEAN CORPUSCULAR VOLUME 83.6 fL (81-99); MONOCYTES # (AUTO) 0.5 (0.2-0.8); MONOCYTES % 7.8 % (4.4-11.3); NEUTROPHILS % 73.4 % (38.7-80.0); PLATELET COUNT 154 x10e3/uL (140-360); RED BLOOD COUNT 4.52 x10e6/uL (3.6-5.1); RED CELL DISTRIBUTION WIDTH 13.9 % (11.7-14.4)
[2018-03-19 23:04] LABS: BILIRUBIN,URINE NEGATIVE (NEGATIVE); CLARITY,URINE CLEAR (CLEAR); COLOR,URINE YELLOW (YELLOW); KETONES,URINE NEGATIVE (NEGATIVE); LEUKOCYTE ESTERASE ,URINE NEGATIVE (NEGATIVE); NITRITE,URINE NEGATIVE (NEGATIVE); PROTEIN,URINE DIPSTICK NEGATIVE (NEGATIVE); URINE UROBILINOGEN 0.2 mg/dL (0.2 - 1)
[2018-03-19 23:07] LABS: EPITHELIAL CELLS,URINE FEW /LPF; RBC,URINE 0-5 /HPF (0-5); WBC,URINE (MAN) 0-5 /HPF (0-5)
[2018-03-19 23:19] LABS: ALANINE AMINOTRANSFERASE 18 IU/L (0-55); ALBUMIN/GLOBULIN RATIO 1.3 (0.8-2.0); ALKALINE PHOSPHATASE 79 IU/L (40-150); BLOOD UREA NITROGEN 7 mg/dL (7-26); BUN/CREATININE RATIO 9 (6-25); CALCIUM 9.6 mg/dL (8.4-10.2); CARBON DIOXIDE 25 mmol/L (22-29); CHLORIDE 105 mmol/L (98-107); CREATININE, SERUM 0.75 mg/dL (0.57-1.11); EST GLOMERULAR FILTRATION RATE > 60 ML/MIN (60-); GLUCOSE 95 mg/dL (74-118); LIPASE 27 U/L (8-78); SODIUM 141 mmol/L (136-145)
== END 2018-03-20 00:04 | disposition home or self-care (01) ==
LOC: ER 22:30
DX: R10.13 Epigastric pain (principal); R10.84 Generalized abdominal pain
CPT/HCPCS: 36415; 80053; 81001; 83690; 85025; 99283; J2270; J2405

== ENCOUNTER 2018-04-16 21:01 | Emergency (ER) | payer MEDICARE, OTHER ==
[~2018-04-16] VITALS: Ht 160 cm; Wt 89.8 kg
[2018-04-16] MEDS ORDERED: SODIUM CHLORIDE 0.9% 1000ML 1,000 ML IV ONE (21:30)
[2018-04-16] MEDS ORDERED: PANTOPRAZOLE 40 MG 10ML VIAL IV STA (21:30)
[2018-04-16] MEDS ORDERED: ONDANSETRON HCL INJ 2 MG/ML VIAL IV STA (21:30)
[2018-04-16 21:46] LABS: BASOPHILS % 0.6 % (0.0-1.0); EOSINOPHILS # (AUTO) 0.1 (0.0-0.4); EOSINOPHILS % 1.2 % (0.0-6.0); HEMATOCRIT 39.8 % (34.2-44.1); HEMOGLOBIN 13.1 g/dL (12.0-16.0); LYMPHOCYTES # (AUTO) 1.6 (1.0-3.2); LYMPHOCYTES % 23.8 % (18.0-39.1); MEAN CORPUSCULAR HEMOGLOBIN 27.5 pg (28-32); MEAN CORPUSCULAR HGB CONC 32.9 g/dL (31-35); MEAN CORPUSCULAR VOLUME 83.6 fL (81-99); MONOCYTES # (AUTO) 0.5 (0.2-0.8); MONOCYTES % 7.3 % (4.4-11.3); NEUTROPHILS # (AUTO) 4.5 (2.1-6.9); NEUTROPHILS % 66.7 % (38.7-80.0); PLATELET COUNT 189 x10e3/uL (140-360); RED BLOOD COUNT 4.76 x10e6/uL (3.6-5.1); RED CELL DISTRIBUTION WIDTH 13.9 % (11.7-14.4)
[2018-04-16 21:58] LABS: CLARITY,URINE CLEAR (CLEAR); COLOR,URINE YELLOW (YELLOW); LEUKOCYTE ESTERASE ,URINE NEGATIVE (NEGATIVE); NITRITE,URINE NEGATIVE (NEGATIVE)
[2018-04-16 21:59] LABS: BILIRUBIN,URINE NEGATIVE (NEGATIVE); KETONES,URINE NEGATIVE (NEGATIVE); PROTEIN,URINE DIPSTICK NEGATIVE (NEGATIVE); URINE UROBILINOGEN 0.2 mg/dL (0.2 - 1)
[2018-04-16 22:02] LABS: BACTERIA,URINE RARE /HPF; EPITHELIAL CELLS,URINE FEW /LPF; WBC,URINE (MAN) 0-5 /HPF (0-5)
[2018-04-16 22:03] LABS: ALANINE AMINOTRANSFERASE 12 IU/L (0-55); ALBUMIN 4.1 g/dL (3.5-5.0); ALBUMIN/GLOBULIN RATIO 1.2 (0.8-2.0); ALKALINE PHOSPHATASE 95 IU/L (40-150); AMYLASE 54 U/L (25-125); ANION GAP 12.5 mmol/L (8-16); BLOOD UREA NITROGEN 5 mg/dL (7-26); BUN/CREATININE RATIO 6 (6-25); CALCIUM 9.4 mg/dL (8.4-10.2); CARBON DIOXIDE 25 mmol/L (22-29); CHLORIDE 105 mmol/L (98-107); CREATININE, SERUM 0.78 mg/dL (0.57-1.11); EST GLOMERULAR FILTRATION RATE > 60 ML/MIN (60-); GLUCOSE 88 mg/dL (74-118); LIPASE 17 U/L (8-78); POTASSIUM 3.5 mmol/L (3.5-5.1); SODIUM 139 mmol/L (136-145)
== END 2018-04-16 22:42 | disposition home or self-care (01) ==
LOC: ER 21:01
DX: R10.84 Generalized abdominal pain (principal); R11.2 Nausea with vomiting, unspecified; K29.00 Acute gastritis without bleeding
CPT/HCPCS: 36415; 80053; 81001; 82150; 83690; 85025; 99283; J2405; J7030

== ENCOUNTER 2018-06-12 05:45 | Emergency (ER) | payer MEDICARE, OTHER ==
[~2018-06-12] VITALS: Ht 160 cm; Wt 89.8 kg
== END 2018-06-12 06:21 | disposition left against medical advice (07) ==
LOC: ER 05:45
DX: R10.9 Unspecified abdominal pain (principal)

== ENCOUNTER 2019-02-18 10:16 | Emergency (ER) | payer MEDICARE, OTHER ==
[~2019-02-18] VITALS: Ht 160 cm; Wt 89.8 kg
--- OUTSIDE RECORDS SUMMARY | 2019-02-18 10:18 | XMS REPORT | Continuity of Care Document ---
Author Author [facility] Interface Address Unknown Phone Unavailable Problems Problem Status Onset Date Classification Date Reported Comments Source Pancreatitis Active Problem 06/12/2018 [facility] Medications Medication Details Route Status Patient Instructions Ordering Provider Order Date Source Acetaminophen With Codeine (Tylenol With Codeine #3 Tablet) 1 Each Tablet Every 6 Hours as needed for Pain Active [facility] Omeprazole 40 Mg Capsule.dr Daily Active [facility] Paroxetine Hcl 20 Mg Tablet Daily Active [facility] Pravastatin Sodium 20 Mg Tablet Daily Active [facility] Sucralfate 1 Gm Tablet Daily Active [facility] Allergies, Adverse Reactions, Alerts Substance Category Reaction Severity Reaction type Status Date Reported Comments Source Acetaminophen Unknown Allergy to Substance Active 05/22/2017 [facility] Ibuprofen Unknown Allergy to Substance Active 05/22/2017 [facility] Immunizations Immunization Date Given Site Status Last Updated Comments Source Results Order Name Results Value Reference Range Date Interpretation Comments Source Automated blood basophil count (count/volume) Automated blood basophil count (count/volume) 0.0 0.0 - 0.1 04/16/2018 [facility] Automated blood basophil count as percentage of total leukocytes Automated blood basophil count as percentage of total leukocytes 0.6 0.0 - 1.0 04/16/2018 [facility] Automated blood eosinophil count Automated blood eosinophil count 0.1 0.0 - 0.4 04/16/2018 [facility] Automated blood eosinophil count as percentage of total leukocytes Automated blood eosinophil count as percentage of total leukocytes 1.2 0.0 - 6.0 04/16/2018 [facility] Automated blood hematocrit (volume fraction) Automated blood hematocrit (volume fraction) 39.8 34.2 - 44.1 04/16/2018 [facility] Automated blood lymphocyte count as percentage ot total leukocytes Automated blood lymphocyte count as percentage ot total leukocytes 23.8 18.0 - 39.1 04/16/2018 [facility] Automated blood monocyte count as percentage of total leukocytes Automated blood monocyte count as percentage of total leukocytes 7.3 4.4 - 11.3 04/16/2018 [facility] Automated blood neutrophil count Automated blood neutrophil count 4.5 2.1 - 6.9 04/16/2018 [facility] Automated blood platelet count (count/volume) Automated blood platelet count (count/volume) 189 140 - 360 04/16/2018 [facility] Automated blood segmented neutrophil count as percentage of total leukocytes Automated blood segmented neutrophil count as percentage of total leukocytes 66.7 38.7 - 80.0 04/16/2018 [facility] Automated erythrocyte mean corpuscular hemoglobin (mass per erythrocyte) Automated erythrocyte mean corpuscular hemoglobin (mass per erythrocyte) 27.5 28 - 32 04/16/2018 [facility] Automated erythrocyte mean corpuscular hemoglobin concentration measurement (mass/volume) Automated erythrocyte mean corpuscular hemoglobin concentration measurement (mass/volume) 32.9 31 - 35 04/16/2018 [facility] Automated erythrocyte mean corpuscular volume Automated erythrocyte mean corpuscular volume 83.6 81 - 99 04/16/2018 [facility] Blood erythrocytes automated count (number/volume) Blood erythrocytes automated count (number/volume) 4.76 3.6 - 5.1 04/16/2018 [facility] Blood hemoglobin measurement (moles/volume) Blood hemoglobin measurement (moles/volume) 13.1 12.0 - 16.0 04/16/2018 [facility] Blood leukocytes automated count (number/volume) Blood leukocytes automated count (number/volume) 6.73 4.8 - 10.8 04/16/2018 [facility] Blood lymphocytes count (number/volume) Blood lymphocytes count (number/volume) 1.6 1.0 - 3.2 04/16/2018 [facility] Blood monocytes automated count (number/volume) Blood monocytes automated count (number/volume) 0.5 0.2 - 0.8 04/16/2018 [facility] Estimated glomerular filtration rate (GFR) determination Estimated glomerular filtration rate (GFR) determination null 60 04/16/2018 [facility] Glucose measurement Glucose measurement 88 74 - 118 04/16/2018 [facility] Plasma globulin measurement (mass/volume) Plasma globulin measurement (mass/volume) 3.5 2.3 - 3.5 04/16/2018 [facility] Serum or plasma alanine aminotransferase measurement (enzymatic activity/volume) Serum or plasma alanine aminotransferase measurement (enzymatic activity/volume) 12 0 - 55 04/16/2018 [facility] Serum or plasma albumin measurement (mass/volume) Serum or plasma albumin measurement (mass/volume) 4.1 3.5 - 5.0 04/16/2018 [facility] Serum or plasma albumin/globulin mass ratio Serum or plasma albumin/globulin mass ratio 1.2 0.8 - 2.0 04/16/2018 [facility] Serum or plasma alkaline phosphatase measurement (enzymatic activity/volume) Serum or plasma alkaline phosphatase measurement (enzymatic activity/volume) 95 40 - 150 04/16/2018 [facility] Serum or plasma amylase measurement (enzymatic activity/volume) Serum or plasma amylase measurement (enzymatic activity/volume) 54 25 - 125 04/16/2018 [facility] Serum or plasma anion gap Serum or plasma anion gap 12.5 8 - 16 04/16/2018 [facility] Serum or plasma calcium measurement (mass/volume) Serum or plasma calcium measurement (mass/volume) 9.4 8.4 - 10.2 04/16/2018 [facility] Serum or plasma carbon dioxide, total measurement (moles/volume) Serum or plasma carbon dioxide, total measurement (moles/volume) 25 22 - 29 04/16/2018 [facility] Serum or plasma chloride measurement (moles/volume) Serum or plasma chloride measurement (moles/volume) 105 98 - 107 04/16/2018 [facility] Serum or plasma creatinine measurement (mass/volume) Serum or plasma creatinine measurement (mass/volume) 0.78 0.57 - 1.11 04/16/2018 [facility] Serum or plasma lipase measurement (enzymatic activity/volume) Serum or plasma lipase measurement (enzymatic activity/volume) 17 8 - 78 04/16/2018 [facility] Serum or plasma potassium measurement (moles/volume) Serum or plasma potassium measurement (moles/volume) 3.5 3.5 - 5.1 04/16/2018 [facility] Serum or plasma protein measurement (mass/volume) Serum or plasma protein measurement (mass/volume) 7.6 6.5 - 8.1 04/16/2018 [facility] Serum or plasma sodium measurement (moles/volume) Serum or plasma sodium measurement (moles/volume) 139 136 - 145 04/16/2018 [facility] Serum or plasma total bilirubin measurement (mass/volume) Serum or plasma total bilirubin measurement (mass/volume) 0.4 0.2 - 1.2 04/16/2018 [facility] Serum or plasma urea nitrogen measurement (mass/volume) Serum or plasma urea nitrogen measurement (mass/volume) 5 7 - 26 04/16/2018 [facility] Serum or plasma urea nitrogen/creatinine mass ratio Serum or plasma urea nitrogen/creatinine mass ratio 6 6 - 25 04/16/2018 [facility] Red Cell Distribution Width 13.9 11.7 - 14.4 04/16/2018 [facility] IM GRANULOCYTES % 0.4 0.0 - 1.0 04/16/2018 [facility] Absolute Immature Granulocyte (auto 0.03 0 - 0.1 04/16/2018 [facility] Aspartate Amino Transf (AST/SGOT) 15 5 - 34 04/16/2018 [facility] Automated urine sediment leukocyte count by microscopy (number/high power field) Automated urine sediment leukocyte count by microscopy (number/high power field) null 0 - 5 04/16/2018 [facility] Bacteria detection in urine sediment by light microscopy Bacteria detection in urine sediment by light microscopy RARE NONE 04/16/2018 [facility] Epithelial cells detection in urine sediment by light microscopy Epithelial cells detection in urine sediment by light microscopy FEW NONE 04/16/2018 [facility] Erythrocytes detection in urine sediment by light microscopy Erythrocytes detection in urine sediment by light microscopy null 0 - 5 04/16/2018 [facility] Specific gravity of Urine by Test strip Specific gravity of Urine by Test strip 1.005 1.010 - 1.025 04/16/2018 [facility] Urine clarity Urine clarity CLEAR CLEAR 04/16/2018 [facility] Urine color determination Urine color determination YELLOW YELLOW 04/16/2018 [facility] Urine erythrocytes detection Urine erythrocytes detection TRACE NEGATIVE 04/16/2018 [facility] Urine glucose detection Urine glucose detection NEGATIVE NEGATIVE 04/16/2018 [facility] Urine ketones detection by automated test strip Urine ketones detection by automated test strip NEGATIVE NEGATIVE 04/16/2018 [facility] Urine leukocyte esterase detection by dipstick Urine leukocyte esterase detection by dipstick NEGATIVE NEGATIVE 04/16/2018 [facility] Urine nitrite detection Urine nitrite detection NEGATIVE NEGATIVE 04/16/2018 [facility] Urine pH measurement by automated test strip Urine pH measurement by automated test strip 7 5 - 7 04/16/2018 [facility] Urine protein measurement by test strip (mass/volume) Urine protein measurement by test strip (mass/volume) NEGATIVE NEGATIVE 04/16/2018 [facility] Urine total bilirubin measurement (mass/volume) Urine total bilirubin measurement (mass/volume) NEGATIVE NEGATIVE 04/16/2018 [facility] Urine urobilinogen measurement by test strip (mass/volume) Urine urobilinogen measurement by test strip (mass/volume) 0.2 0.2 - 1 04/16/2018 [facility] Urine human chorionic gonadotropin (hCG) detection Urine human chorionic gonadotropin (hCG) detection NEGATIVE NEGATIVE 03/16/2018 [facility] Barbiturates screen, urine Barbiturates screen, urine NEGATIVE NEGATIVE 12/15/2017 [facility] Urine amphetamines detection by screen method > 1000 ng/mL Urine amphetamines detection by screen method > 1000 ng/mL NEGATIVE NEGATIVE 12/15/2017 [facility] Urine benzodiazepines detection by screening method Urine benzodiazepines detection by screening method NEGATIVE NEGATIVE 12/15/2017 [facility] Urine cannabinoids detection by screening method Urine cannabinoids detection by screening method NEGATIVE NEGATIVE 12/15/2017 [facility] Urine cocaine measurement (mass/volume) Urine cocaine measurement (mass/volume) NEGATIVE NEGATIVE 12/15/2017 [facility] Urine methadone screen Urine methadone screen NEGATIVE NEGATIVE 12/15/2017 [facility] Urine opiates screening test Urine opiates screening test NEGATIVE NEGATIVE 12/15/2017 [facility] Urine phencyclidine detection by screening method Urine phencyclidine detection by screening method NEGATIVE NEGATIVE 12/15/2017 [facility] Urine Methamphetamines Screen NEGATIVE NEGATIVE 12/15/2017 [facility] Vital Signs Vital Sign Value Date Comments Source Encounters Location Location Details Encounter Type Encounter Number Reason For Visit Attending Provider ADM Date DC Date Status Source Discharged Inpatient [id number] ZOILA ARMIJO MD 10/03/2017 10/04/2017 [facility] Departed Emergency Room [id number] BUSHRA HEALY MD 10/06/2017 10/06/2017 [facility] Departed Emergency Room [id number] IWONA SMITH MD 12/15/2017 12/16/2017 [facility] Departed Emergency Room [id number] ERICH CARDENAS MD 03/16/2018 03/16/2018 [facility] Departed Emergency Room [id number] BLAKE WESTON MD 03/19/2018 03/20/2018 [facility] Departed Emergency Room [id number] IWONA SMITH MD 04/16/2018 04/16/2018 [facility] Departed Emergency Room [id number] BUSHRA HEALY MD 06/12/2018 06/12/2018 [facility] Procedures Procedure Code Date Perfomer Comments Source Computed tomography of abdomen and pelvis with contrast [id number] 03/16/2018 [facility] X-ray of chest, two views [id number] 12/15/2017 [facility] US Gallbladder [id number] 10/03/2017 [facility] Magnetic resonance cholangiopancreatography (MRCP) without then with contrast [id number] 10/03/2017 [facility]
[2019-02-18] MEDS ORDERED: SODIUM CHLORIDE 0.9% 1000ML 1,000 ML IV STA (10:35)
[2019-02-18] MEDS ORDERED: ONDANSETRON HCL INJ 2MG/ML 2ML 2 MG/ML VIAL IV NR (10:35)
[2019-02-18] MEDS ORDERED: MORPHINE SULFATE 2 MG/ML SYR 1ML IV NR (10:35)
[2019-02-18] MEDS ORDERED: MORPHINE SULFATE INJ 4 MG/ML INJ 1ML IV NR (11:15)
[2019-02-18 11:21] LABS: BASOPHILS % 0.3 % (0.0-1.0); EOSINOPHILS # (AUTO) 0.1 (0.0-0.4); EOSINOPHILS % 0.8 % (0.0-6.0); HEMATOCRIT 41.6 % (34.2-44.1); HEMOGLOBIN 13.6 g/dL (12.0-16.0); LYMPHOCYTES # (AUTO) 1.7 (1.0-3.2); LYMPHOCYTES % 26.8 % (18.0-39.1); MEAN CORPUSCULAR HEMOGLOBIN 27.4 pg (28-32); MEAN CORPUSCULAR HGB CONC 32.7 g/dL (31-35); MEAN CORPUSCULAR VOLUME 83.9 fL (81-99); MONOCYTES # (AUTO) 0.5 (0.2-0.8); MONOCYTES % 7.2 % (4.4-11.3); NEUTROPHILS # (AUTO) 4.1 (2.1-6.9); NEUTROPHILS % 64.6 % (38.7-80.0); PLATELET COUNT 161 x10e3/uL (140-360); RED BLOOD COUNT 4.96 x10e6/uL (3.6-5.1)
[2019-02-18 11:27] LABS: PHENCYCLIDINE SCREEN,URINE NEGATIVE (NEGATIVE)
[2019-02-18 11:28] LABS: AMPHETAMINES SCREEN,URINE NEGATIVE (NEGATIVE); BENZODIAZEPINES SCREEN,URINE NEGATIVE (NEGATIVE); PREGNANCY TEST, URINE NEGATIVE (NEGATIVE)
[2019-02-18 11:36] LABS: BILIRUBIN,URINE NEGATIVE (NEGATIVE); CLARITY,URINE CLEAR (CLEAR); KETONES,URINE NEGATIVE (NEGATIVE); LEUKOCYTE ESTERASE ,URINE NEGATIVE (NEGATIVE); NITRITE,URINE NEGATIVE (NEGATIVE); PROTEIN,URINE DIPSTICK NEGATIVE (NEGATIVE); URINE UROBILINOGEN 0.2 mg/dL (0.2 - 1)
[2019-02-18 11:37] LABS: INR 0.95; PROTHROMBIN TIME 13.2 seconds (11.9-14.5)
[2019-02-18 11:41] LABS: COLOR,URINE YELLOW (YELLOW)
[2019-02-18 11:47] LABS: ALANINE AMINOTRANSFERASE 19 IU/L (0-55); ALBUMIN 4.4 g/dL (3.5-5.0); ALBUMIN/GLOBULIN RATIO 1.4 (0.8-2.0); ALKALINE PHOSPHATASE 82 IU/L (40-150); AMYLASE 50 U/L (25-125); ANION GAP 14.4 mmol/L (8-16); BLOOD UREA NITROGEN 5 mg/dL (7-26); BUN/CREATININE RATIO 6 (6-25); CALCIUM 10.1 mg/dL (8.4-10.2); CARBON DIOXIDE 23 mmol/L (22-29); CHLORIDE 101 mmol/L (98-107); CREATINE KINASE 74 IU/L (29-168); CREATININE, SERUM 0.78 mg/dL (0.57-1.11); EST GLOMERULAR FILTRATION RATE > 60 ML/MIN (60-); GLUCOSE 101 mg/dL (74-118); LIPASE 15 U/L (8-78); MAGNESIUM 2.2 MG/DL (1.3-2.1); POTASSIUM 3.4 mmol/L (3.5-5.1); SODIUM 135 mmol/L (136-145)
[2019-02-18 11:58] LABS: BACTERIA,URINE FEW /HPF; EPITHELIAL CELLS,URINE MANY /LPF; WBC,URINE (MAN) 0-5 /HPF (0-5)
--- NOTE | 2019-02-18 12:56 | Diagnostic Imaging Report ---
EXAMINATION: CHEST SINGLE (PORTABLE) INDICATION: ^ABD PAIN ^[id number] ^[id number] COMPARISON: 12/15/2017 FINDINGS: AP view TUBES and LINES: None. LUNGS: Lungs are well inflated. There is no evidence of pneumonia or pulmonary edema. PLEURA: No pleural effusion or pneumothorax. HEART AND MEDIASTINUM: The cardiac silhouette is enlarged, accentuated by low lung volumes. BONES AND SOFT TISSUES: No acute osseous lesion. Soft tissues are unremarkable. UPPER ABDOMEN: No free air under the diaphragm. IMPRESSION: No acute thoracic abnormality. Signed by: Dr. Roosevelt Jerome MD on 02/18/2019 12:53 PM
--- NOTE | 2019-02-18 14:04 | Diagnostic Imaging Report ---
EXAM: CT Abdomen and Pelvis WITH contrast INDICATION: ^ABD PAIN VOMITING ^[id number] ^[id number] COMPARISON: CT dated 03/16/2018 TECHNIQUE: Abdomen and pelvis were scanned utilizing a multidetector helical scanner from the lung base to the pubic symphysis after administration of IV contrast. Coronal and sagittal reformations were obtained. Dose modulation, iterative reconstruction, and/or weight based adjustment of the mA/kV was utilized to reduce the radiation dose to as low as reasonably achievable. Routine protocol was performed. Scan was performed when during portal venous phase. IV CONTRAST: 100 mL of Isovue-370 ORAL CONTRAST: Water COMPLICATIONS: None RADIATION DOSE: Total DLP: 577 mGy*cm Estimated effective dose: (DLP x 0.015 x size factor) mSv CTDIvol has been reviewed. It is below the limits set by the Radiation Protocol Committee (RPC). FINDINGS: LINES and TUBES: None. LOWER THORAX: Unremarkable HEPATOBILIARY: No focal hepatic lesions. No biliary ductal dilation. GALLBLADDER: Surgically absent. SPLEEN: No splenomegaly. PANCREAS: No focal masses or ductal dilatation. ADRENALS: No adrenal nodules KIDNEYS/URETERS: Kidneys enhance symmetrically. No hydronephrosis. No cystic or solid mass lesions. No stones. GI TRACT: No abnormal distention, wall thickening, or evidence of bowel obstruction. Mild gaseous distention of transverse colon. Appendix is normal. Again seen small hiatal hernia. PELVIC ORGANS/BLADDER: Unremarkable. Hypodensities within cervix, likely nabothian cysts. LYMPH NODES: No lymphadenopathy. VESSELS: Unremarkable. PERITONEUM / RETROPERITONEUM: No free air or fluid. BONES: Unremarkable. SOFT TISSUES: Unremarkable. IMPRESSION: 1. No acute inflammatory process in the abdomen/pelvis. Signed by: Dr. Roosevelt Jerome MD on 02/18/2019 2:00 PM
[2019-02-18] MEDS ORDERED: IOPAMIDOL 370 MG/ML 200 ML INFUS..BTL INJ ONE (17:30)
[2019-02-18] MEDS ORDERED: SODIUM CHLORIDE 0.9% 50ML 50 ML ONE (17:30)
== END 2019-02-18 14:30 | disposition home or self-care (01) ==
LOC: ER 10:16
DX: R10.13 Epigastric pain (principal); R10.84 Generalized abdominal pain; R11.2 Nausea with vomiting, unspecified; I10 Essential (primary) hypertension; G89.29 Other chronic pain
CPT/HCPCS: 36415; 71045; 74177; 80053; 80307; 81001; 81025; 82150; 82550; 82553; 83690; 83735; 84484; 85025; 85610; 85730; 87086; 93005; 99284; J2270; J2405; J7030; Q9967

== ENCOUNTER 2019-05-04 00:52 | Emergency (ER) | payer MEDICARE, OTHER ==
[~2019-05-04] VITALS: Ht 160 cm; Wt 89.8 kg
--- OUTSIDE RECORDS SUMMARY | 2019-05-04 00:55 | XMS REPORT | Continuity of Care Document ---
Author Author ezzai - how to [place] Address Unknown Phone Unavailable Care Team Providers Care Mortgage Processor Name Role Phone [facility] [employer] Information [employer] Unavailable Unavailable Problems Problem Status Onset Date Classification Date Reported Comments Source Pancreatitis Active Problem 06/12/2018 [facility] Medications Medication Details Route Status Patient Instructions Ordering Provider Order Date Source Acetaminophen With Codeine (Tylenol With Codeine #3 Tablet) 1 Each Tablet Every 6 Hours as needed for Pain Active [facility] Omeprazole 40 Mg Capsule.dr Daily [facility] Paroxetine Hcl 20 Mg Tablet Daily [facility] Pravastatin Sodium 20 Mg Tablet Daily [facility] Sucralfate 1 Gm Tablet Daily [facility] Allergies, Adverse Reactions, Alerts Substance Category Reaction Severity Reaction type Status Date Reported Comments Source Acetaminophen Unknown Allergy to Substance Active 05/22/2017 [facility] Ibuprofen Unknown Allergy to Substance Active 05/22/2017 [facility] Immunizations No Data Provided for This Section Results Order Name Results Value Reference Range Date Interpretation Comments Source Automated blood basophil count (count/volume) Automated blood basophil count (count/volume) 0.0 0.0 - 0.1 04/16/2018 [facility] Automated blood basophil count as percentage of total leukocytes Automated blood basophil count as percentage of total leukocytes 0.6 0.0 - 1.0 04/16/2018 [facility] Automated blood eosinophil count Automated blood eosinophil count 0.1 0.0 - 0.4 04/16/2018 [facility] Automated blood eosinophil count as percentage of total leukocytes Automated blood eosinophil count as percentage of total leukocytes 1.2 0.0 - 6.0 04/16/2018 [facility] Automated blood hematocrit (volume fraction) Automated blood hematocrit (volume fraction) 39.8 34.2 - 44.1 04/16/2018 [facility] Automated blood lymphocyte count as percentage ot total leukocytes Automated blood lymphocyte count as percentage ot total leukocytes 23.8 18.0 - 39.1 04/16/2018 [facility] Automated blood monocyte count as percentage of total leukocytes Automated blood monocyte count as percentage of total leukocytes 7.3 4.4 - 11.3 04/16/2018 [facility] Automated blood neutrophil count Automated blood neutrophil count 4.5 2.1 - 6.9 04/16/2018 [facility] Automated blood platelet count (count/volume) Automated blood platelet count (count/volume) 189 140 - 360 04/16/2018 [facility] Automated blood segmented neutrophil count as percentage of total leukocytes Automated blood segmented neutrophil count as percentage of total leukocytes 66.7 38.7 - 80.0 04/16/2018 [facility] Automated erythrocyte mean corpuscular hemoglobin (mass per erythrocyte) Automated erythrocyte mean corpuscular hemoglobin (mass per erythrocyte) 27.5 28 - 32 04/16/2018 [facility] Automated erythrocyte mean corpuscular hemoglobin concentration measurement (mass/volume) Automated erythrocyte mean corpuscular hemoglobin concentration measurement (mass/volume) 32.9 31 - 35 04/16/2018 [facility] Automated erythrocyte mean corpuscular volume Automated erythrocyte mean corpuscular volume 83.6 81 - 99 04/16/2018 [facility] Blood erythrocytes automated count (number/volume) Blood erythrocytes automated count (number/volume) 4.76 3.6 - 5.1 04/16/2018 [facility] Blood hemoglobin measurement (moles/volume) Blood hemoglobin measurement (moles/volume) 13.1 12.0 - 16.0 04/16/2018 [facility] Blood leukocytes automated count (number/volume) Blood leukocytes automated count (number/volume) 6.73 4.8 - 10.8 04/16/2018 [facility] Blood lymphocytes count (number/volume) Blood lymphocytes count (number/volume) 1.6 1.0 - 3.2 04/16/2018 [facility] Blood monocytes automated count (number/volume) Blood monocytes automated count (number/volume) 0.5 0.2 - 0.8 04/16/2018 [facility] Estimated glomerular filtration rate (GFR) determination Estimated glomerular filtration rate (GFR) determination >60 60 04/16/2018 [facility] Glucose measurement Glucose measurement 88 74 - 118 04/16/2018 [facility] Plasma globulin measurement (mass/volume) Plasma globulin measurement (mass/volume) 3.5 2.3 - 3.5 04/16/2018 [facility] Serum or plasma alanine aminotransferase measurement (enzymatic activity/volume) Serum or plasma alanine aminotransferase measurement (enzymatic activity/volume) 12 0 - 55 04/16/2018 [facility] Serum or plasma albumin measurement (mass/volume) Serum or plasma albumin measurement (mass/volume) 4.1 3.5 - 5.0 04/16/2018 [facility] Serum or plasma albumin/globulin mass ratio Serum or plasma albumin/globulin mass ratio 1.2 0.8 - 2.0 04/16/2018 [facility] Serum or plasma alkaline phosphatase measurement (enzymatic activity/volume) Serum or plasma alkaline phosphatase measurement (enzymatic activity/volume) 95 40 - 150 04/16/2018 [facility] Serum or plasma amylase measurement (enzymatic activity/volume) Serum or plasma amylase measurement (enzymatic activity/volume) 54 25 - 125 04/16/2018 [facility] Serum or plasma anion gap Serum or plasma anion gap 12.5 8 - 16 04/16/2018 [facility] Serum or plasma calcium measurement (mass/volume) Serum or plasma calcium measurement (mass/volume) 9.4 8.4 - 10.2 04/16/2018 [facility] Serum or plasma carbon dioxide, total measurement (moles/volume) Serum or plasma carbon dioxide, total measurement (moles/volume) 25 22 - 29 04/16/2018 [facility] Serum or plasma chloride measurement (moles/volume) Serum or plasma chloride measurement (moles/volume) 105 98 - 107 04/16/2018 [facility] Serum or plasma creatinine measurement (mass/volume) Serum or plasma creatinine measurement (mass/volume) 0.78 0.57 - 1.11 04/16/2018 [facility] Serum or plasma lipase measurement (enzymatic activity/volume) Serum or plasma lipase measurement (enzymatic activity/volume) 17 8 - 78 04/16/2018 [facility] Serum or plasma potassium measurement (moles/volume) Serum or plasma potassium measurement (moles/volume) 3.5 3.5 - 5.1 04/16/2018 [facility] Serum or plasma protein measurement (mass/volume) Serum or plasma protein measurement (mass/volume) 7.6 6.5 - 8.1 04/16/2018 [facility] Serum or plasma sodium measurement (moles/volume) Serum or plasma sodium measurement (moles/volume) 139 136 - 145 04/16/2018 [facility] Serum or plasma total bilirubin measurement (mass/volume) Serum or plasma total bilirubin measurement (mass/volume) 0.4 0.2 - 1.2 04/16/2018 [facility] Serum or plasma urea nitrogen measurement (mass/volume) Serum or plasma urea nitrogen measurement (mass/volume) 5 7 - 26 04/16/2018 [facility] Serum or plasma urea nitrogen/creatinine mass ratio Serum or plasma urea nitrogen/creatinine mass ratio 6 6 - 25 04/16/2018 [facility] Red Cell Distribution Width 13.9 11.7 - 14.4 04/16/2018 [facility] IM GRANULOCYTES % 0.4 0.0 - 1.0 04/16/2018 [facility] Absolute Immature Granulocyte (auto 0.03 0 - 0.1 04/16/2018 [facility] Aspartate Amino Transf (AST/SGOT) 15 5 - 34 04/16/2018 [facility] Automated urine sediment leukocyte count by microscopy (number/high power field) Automated urine sediment leukocyte count by microscopy (number/high power field) <5 0 - 5 04/16/2018 [facility] Bacteria detection in urine sediment by light microscopy Bacteria detection in urine sediment by light microscopy RARE NONE 04/16/2018 [facility] Epithelial cells detection in urine sediment by light microscopy Epithelial cells detection in urine sediment by light microscopy FEW NONE 04/16/2018 [facility] Erythrocytes detection in urine sediment by light microscopy Erythrocytes detection in urine sediment by light microscopy <10 0 - 5 04/16/2018 [facility] Specific gravity of Urine by Test strip Specific gravity of Urine by Test strip 1.005 1.010 - 1.025 04/16/2018 [facility] Urine clarity Urine clarity CLEAR CLEAR 04/16/2018 [facility] Urine color determination Urine color determination YELLOW YELLOW 04/16/2018 [facility] Urine erythrocytes detection Urine erythrocytes detection TRACE NEGATIVE 04/16/2018 [facility] Urine glucose detection Urine glucose detection NEGATIVE NEGATIVE 04/16/2018 [facility] Urine ketones detection by automated test strip Urine ketones detection by automated test strip NEGATIVE NEGATIVE 04/16/2018 [facility] Urine leukocyte esterase detection by dipstick Urine leukocyte esterase detection by dipstick NEGATIVE NEGATIVE 04/16/2018 [facility] Urine nitrite detection Urine nitrite detection NEGATIVE NEGATIVE 04/16/2018 [facility] Urine pH measurement by automated test strip Urine pH measurement by automated test strip 7 5 - 7 04/16/2018 [facility] Urine protein measurement by test strip (mass/volume) Urine protein measurement by test strip (mass/volume) NEGATIVE NEGATIVE 04/16/2018 [facility] Urine total bilirubin measurement (mass/volume) Urine total bilirubin measurement (mass/volume) NEGATIVE NEGATIVE 04/16/2018 [facility] Urine urobilinogen measurement by test strip (mass/volume) Urine urobilinogen measurement by test strip (mass/volume) 0.2 0.2 - 1 04/16/2018 [facility] Urine human chorionic gonadotropin (hCG) detection Urine human chorionic gonadotropin (hCG) detection NEGATIVE NEGATIVE 03/16/2018 [facility] Barbiturates screen, urine Barbiturates screen, urine NEGATIVE NEGATIVE 12/15/2017 [facility] Urine amphetamines detection by screen method > 1000 ng/mL Urine amphetamines detection by screen method > 1000 ng/mL NEGATIVE NEGATIVE 12/15/2017 [facility] Urine benzodiazepines detection by screening method Urine benzodiazepines detection by screening method NEGATIVE NEGATIVE 12/15/2017 [facility] Urine cannabinoids detection by screening method Urine cannabinoids detection by screening method NEGATIVE NEGATIVE 12/15/2017 [facility] Urine cocaine measurement (mass/volume) Urine cocaine measurement (mass/volume) NEGATIVE NEGATIVE 12/15/2017 [facility] Urine methadone screen Urine methadone screen NEGATIVE NEGATIVE 12/15/2017 [facility] Urine opiates screening test Urine opiates screening test NEGATIVE NEGATIVE 12/15/2017 [facility] Urine phencyclidine detection by screening method Urine phencyclidine detection by screening method NEGATIVE NEGATIVE 12/15/2017 [facility] Urine Methamphetamines Screen NEGATIVE NEGATIVE 12/15/2017 [facility] Pathology Reports No Data Provided for This Section Diagnostic Reports No Data Provided for This Section Consultation Notes No Data Provided for This Section Discharge Summaries No Data Provided for This Section History and Physicals No Data Provided for This Section Vital Signs No Data Provided for This Section Encounters Location Location Details Encounter Type Encounter Number Reason For Visit Attending Provider ADM Date DC Date Status Source Discharged Inpatient [id number] ZOILA ARMIJO MD 10/03/2017 10/04/2017 [facility] Departed Emergency Room [id number] BUSHRA HEALY MD 10/06/2017 10/06/2017 [facility] Departed Emergency Room [id number] IWONA SMITH MD 12/15/2017 12/16/2017 [facility] Departed Emergency Room [id number] ERICH CARDENAS MD 03/16/2018 03/16/2018 [facility] Departed Emergency Room [id number] BLAKE WESTON MD 03/19/2018 03/20/2018 [facility] Departed Emergency Room [id number] IWONA SMITH MD 04/16/2018 04/16/2018 [facility] Departed Emergency Room [id number] BUSHRA HEALY MD 06/12/2018 06/12/2018 [facility] Procedures Procedure Code Date Perfomer Comments Source Computed tomography of abdomen and pelvis with contrast [id number] 03/16/2018 [facility] X-ray of chest, two views [id number] 12/15/2017 [facility] US Gallbladder [id number] 10/03/2017 [facility] Magnetic resonance cholangiopancreatography (MRCP) without then with contrast [id number] 10/03/2017 [facility] Assessment and Plan No Data Provided for This Section Plan of Care Plan of Care Date Source Discharge Date 06/12/18 6:21am Disposition LEFT AFTER MEDICAL SCREENING Condition at Discharge Stable Forms Provided Work/School Excuse Prescriptions See Medication Section 06/12/2018 [facility] Social History Social History Date Source No social history information available. 06/12/2018 [facility] Family History No Data Provided for This Section Advance Directives Order Name Results Value Date Source Advance Directives Advance Directives Directive Response Recorded Date/Time Does the patient have an advance directive? No 11/12/16 11:02pm If yes, is advance directive on file with [facility]? No 11/12/16 11:02pm If not on file with [facility] will patient provide a copy? Yes 12/16/17 2:47am Do you have a Directive to Physician? No 06/12/18 6:14am Do you have a Medical Power of Dining Room Supervisor? No 06/12/18 6:14am Do you have an out of hospital Do Not Resuscitate Order? No 06/12/18 6:14am Do you have any special needs we should be aware of? No 06/12/18 6:14am Do you have a support person here with you today? No 06/12/18 6:14am Did patient receive Notice of Privacy Practices? No 06/12/18 6:14am Did patient receive patient rights and responsibilities? No 06/12/18 6:14am 06/12/2018 [facility] Functional Status No Data Provided for This Section
[2019-05-04] MEDS ORDERED: ONDANSETRON HCL INJ 2MG/ML 2ML 2 MG/ML VIAL IV STA (00:59)
[2019-05-04] MEDS ORDERED: PANTOPRAZOLE 40 MG 10ML VIAL IV STA (00:59)
[2019-05-04] MEDS ORDERED: SODIUM CHLORIDE 0.9% 1000ML 1,000 ML IV ONE (01:00)
[2019-05-04 01:42] LABS: BASOPHILS % 0.4 % (0.0-1.0); EOSINOPHILS % 0.1 % (0.0-6.0); HEMATOCRIT 44.6 % (34.2-44.1); HEMOGLOBIN 14.1 g/dL (12.0-16.0); LYMPHOCYTES # (AUTO) 1.4 (1.0-3.2); LYMPHOCYTES % 20.8 % (18.0-39.1); MEAN CORPUSCULAR HEMOGLOBIN 27.5 pg (28-32); MEAN CORPUSCULAR HGB CONC 31.6 g/dL (31-35); MEAN CORPUSCULAR VOLUME 86.9 fL (81-99); MONOCYTES # (AUTO) 0.3 (0.2-0.8); NEUTROPHILS % 73.4 % (38.7-80.0); PLATELET COUNT 203 x10e3/uL (140-360); RED BLOOD COUNT 5.13 x10e6/uL (3.6-5.1); RED CELL DISTRIBUTION WIDTH 12.8 % (11.7-14.4)
[2019-05-04 01:53] LABS: AMPHETAMINES SCREEN,URINE NEGATIVE (NEGATIVE); BENZODIAZEPINES SCREEN,URINE NEGATIVE (NEGATIVE); PHENCYCLIDINE SCREEN,URINE NEGATIVE (NEGATIVE)
[2019-05-04 02:04] LABS: ALANINE AMINOTRANSFERASE 14 IU/L (0-55); ALBUMIN 4.3 g/dL (3.5-5.0); ALBUMIN/GLOBULIN RATIO 1.3 (0.8-2.0); ALKALINE PHOSPHATASE 93 IU/L (40-150); ANION GAP 16.6 mmol/L (8-16); BLOOD UREA NITROGEN 7 mg/dL (7-26); BUN/CREATININE RATIO 9 (6-25); CALCIUM 9.5 mg/dL (8.4-10.2); CARBON DIOXIDE 25 mmol/L (22-29); CHLORIDE 101 mmol/L (98-107); CREATINE KINASE 79 IU/L (29-168); EST GLOMERULAR FILTRATION RATE > 60 ML/MIN (60-); GLUCOSE 107 mg/dL (74-118); POTASSIUM 3.6 mmol/L (3.5-5.1); SODIUM 139 mmol/L (136-145)
[2019-05-04 02:05] LABS: AMYLASE 62 U/L (25-125); LIPASE 21 U/L (8-78)
[2019-05-04 02:08] LABS: BILIRUBIN,URINE NEGATIVE (NEGATIVE); CLARITY,URINE CLEAR (CLEAR); COLOR,URINE YELLOW (YELLOW); KETONES,URINE NEGATIVE (NEGATIVE); LEUKOCYTE ESTERASE ,URINE NEGATIVE (NEGATIVE); NITRITE,URINE NEGATIVE (NEGATIVE); PROTEIN,URINE DIPSTICK NEGATIVE (NEGATIVE); URINE UROBILINOGEN 0.2 mg/dL (0.2 - 1)
[2019-05-04 02:16] LABS: RBC,URINE 0-5 /HPF (0-5); WBC,URINE (MAN) 0-5 /HPF (0-5)
[2019-05-04 02:17] LABS: BACTERIA,URINE RARE /HPF; EPITHELIAL CELLS,URINE RARE /LPF
[2019-05-04] MEDS ORDERED: SODIUM CHLORIDE 0.9% 50ML 50 ML ONE (02:19)
[2019-05-04] MEDS ORDERED: IOPAMIDOL 370 MG/ML 200 ML INFUS..BTL INJ ONE (02:20)
--- NOTE | 2019-05-04 02:54 | Diagnostic Imaging Report ---
EXAM: CT of the abdomen and pelvis WITH contrast HISTORY: Abdominal pain, vomiting COMPARISON: CT of the abdomen and pelvis February 18, 2019 and March 16, 2018. TECHNIQUE: The abdomen and pelvis were scanned utilizing a multidetector helical scanner. Coronal and sagittal reformats are provided. PROTOCOL: Routine IV CONTRAST: 100 cc of Isovue-370. ORAL CONTRAST: None, which limits sensitivity and specificity of the exam. RADIATION DOSE: Total DLP: 609.62 mGy*cm Estimated effective dose: (DLP x 0.015 x size factor) Dose modulation, iterative reconstruction, and/or weight based adjustment of the mA/kV was utilized to reduce the radiation dose to as low as reasonably achievable. COMPLICATIONS: None FINDINGS: LOWER THORAX: A small sliding hiatal hernia. HEPATOBILIARY: A punctate hypodensity within the right lobe, statistically most likely a very small incidental cyst, stable. No biliary dilation. Metallic clips in the right upper quadrant of the abdomen are compatible with prior cholecystectomy. SPLEEN: No splenomegaly. PANCREAS: No focal masses or ductal dilatation. ADRENALS: No discrete adrenal nodule. KIDNEYS/URETERS: No hydronephrosis, stones, or definite solid mass lesions. PELVIC ORGANS/BLADDER: The urinary bladder is partially decompressed, but otherwise appears unremarkable. The uterus is retroflexed and anteverted, 1.8 cm hypodensity in the region of the cervix, compatible with an incidental nabothian cyst. GI TRACT: No dilation or wall thickening identified. The appendix is not definitely seen, but there are no inflammatory changes about the cecum.. PERITONEUM / RETROPERITONEUM: No free air or fluid. LYMPH NODES: No pathologically enlarged lymph node. VESSELS: Mild scattered atherosclerotic vascular calcifications. BONES and JOINTS: No aggressive osseous lesion or acute fracture. SOFT TISSUES: Unremarkable. IMPRESSION: 1. No acute CT abnormality. 2. No significant interval change. 3. Persistent small sliding hiatal hernia. Signed by: Dr. Aj Sanders D.O., M.M.M. on 05/04/2019 2:50 AM
[2019-05-04 03:02] VITALS: BP 131/87
== END 2019-05-04 03:15 | disposition home or self-care (01) ==
LOC: ER 00:52
DX: R10.13 Epigastric pain (principal); R11.2 Nausea with vomiting, unspecified; K29.50 Unspecified chronic gastritis without bleeding; I10 Essential (primary) hypertension; E78.5 Hyperlipidemia, unspecified; F41.9 Anxiety disorder, unspecified; J45.909 Unspecified asthma, uncomplicated
CPT/HCPCS: 36415; 74177; 80053; 80307; 81001; 81025; 82150; 82550; 82553; 83690; 84484; 85025; 93005; 99284; C9113; J2405; J7030; Q9967

== ENCOUNTER 2019-05-27 19:09 | Emergency (ER) | payer MEDICARE, OTHER ==
[~2019-05-27] VITALS: Ht 160 cm; Wt 89.8 kg
--- OUTSIDE RECORDS SUMMARY | 2019-05-27 19:13 | XMS REPORT | Continuity of Care Document ---
Author Author Volance Address Unknown Phone Unavailable Care Team Providers Care Television Station Manager Name Role Phone [facility] [employer] Information [employer] Unavailable Unavailable Problems Problem Status Onset Date Classification Date Reported Comments Source Pancreatitis Active Problem 05/04/2019 [facility] Medications Medication Details Route Status Patient Instructions Ordering Provider Order Date Source Acetaminophen With Codeine (Tylenol With Codeine #3 Tablet) 1 Each Tablet Every 6 Hours as needed for Pain Active [facility] Omeprazole 40 Mg Capsule.dr [place] [facility] Paroxetine Hcl 20 Mg Tablet Daily [facility] Pravastatin Sodium 20 Mg Tablet Daily [facility] Sucralfate 1 Gm Tablet Daily [facility] Acetaminophen With Codeine (Tylenol With Codeine #3 Tablet) 1 Each Tablet Every 6 Hours as needed for Pain Active [facility] Omeprazole 40 Mg Capsule.dr [place] [facility] Paroxetine Hcl 20 Mg Tablet Daily [facility] Pravastatin Sodium 20 Mg Tablet Daily [facility] Sucralfate 1 Gm Tablet Daily [facility] Allergies, Adverse Reactions, Alerts Substance Category Reaction Severity Reaction type Status Date Reported Comments Source Acetaminophen Unknown Allergy to Substance Active 05/22/2017 [facility] Ibuprofen Unknown Allergy to Substance Active 05/22/2017 [facility] Immunizations No Data Provided for This Section Results Order Name Results Value Reference Range Date Interpretation Comments Source Blood leukocytes automated count (number/volume) 6.79 4.8 - 10.8 05/04/2019 [facility] Blood erythrocytes automated count (number/volume) 5.13 3.6 - 5.1 05/04/2019 [facility] Blood hemoglobin measurement (moles/volume) 14.1 12.0 - 16.0 05/04/2019 [facility] Automated blood hematocrit (volume fraction) 44.6 34.2 - 44.1 05/04/2019 [facility] Automated erythrocyte mean corpuscular volume 86.9 81 - 99 05/04/2019 [facility] Automated erythrocyte mean corpuscular hemoglobin (mass per erythrocyte) 27.5 28 - 32 05/04/2019 [facility] Automated erythrocyte mean corpuscular hemoglobin concentration measurement (mass/volume) 31.6 31 - 35 05/04/2019 [facility] RDW BldCo-Rto 12.8 11.7 - 14.4 05/04/2019 [facility] Automated blood platelet count (count/volume) 203 140 - 360 05/04/2019 [facility] Automated blood segmented neutrophil count as percentage of total leukocytes 73.4 38.7 - 80.0 05/04/2019 [facility] Automated blood lymphocyte count as percentage ot total leukocytes 20.8 18.0 - 39.1 05/04/2019 [facility] Automated blood monocyte count as percentage of total leukocytes 5.0 4.4 - 11.3 05/04/2019 [facility] Automated blood eosinophil count as percentage of total leukocytes 0.1 0.0 - 6.0 05/04/2019 [facility] Automated blood basophil count as percentage of total leukocytes 0.4 0.0 - 1.0 05/04/2019 [facility] IM GRANULOCYTES % 0.3 0.0 - 1.0 05/04/2019 [facility] Automated blood neutrophil count 5.0 2.1 - 6.9 05/04/2019 [facility] Blood lymphocytes count (number/volume) 1.4 1.0 - 3.2 05/04/2019 [facility] Blood monocytes automated count (number/volume) 0.3 0.2 - 0.8 05/04/2019 [facility] Automated blood eosinophil count 0.0 0.0 - 0.4 05/04/2019 [facility] Automated blood basophil count (count/volume) 0.0 0.0 - 0.1 05/04/2019 [facility] Absolute Immature Granulocyte (auto 0.02 0 - 0.1 05/04/2019 [facility] Urine color determination YELLOW YELLOW 05/04/2019 [facility] Urine clarity CLEAR CLEAR 05/04/2019 [facility] Specific gravity of Urine by Test strip 1.020 1.010 - 1.025 05/04/2019 [facility] Urine pH measurement by automated test strip 6 5 - 7 05/04/2019 [facility] Urine leukocyte esterase detection by dipstick NEGATIVE NEGATIVE 05/04/2019 [facility] Urine nitrite detection NEGATIVE NEGATIVE 05/04/2019 [facility] Urine protein measurement by test strip (mass/volume) NEGATIVE NEGATIVE 05/04/2019 [facility] Urine glucose detection NEGATIVE NEGATIVE 05/04/2019 [facility] Urine ketones detection by automated test strip NEGATIVE NEGATIVE 05/04/2019 [facility] Urine opiates screening test NEGATIVE NEGATIVE 05/04/2019 [facility] Barbiturates screen, urine NEGATIVE NEGATIVE 05/04/2019 [facility] Urine phencyclidine detection by screening method NEGATIVE NEGATIVE 05/04/2019 [facility] Urine amphetamines detection by screen method > 1000 ng/mL NEGATIVE NEGATIVE 05/04/2019 [facility] Urine Methamphetamines Screen NEGATIVE NEGATIVE 05/04/2019 [facility] Urine benzodiazepines detection by screening method NEGATIVE NEGATIVE 05/04/2019 [facility] Urine cocaine measurement (mass/volume) NEGATIVE NEGATIVE 05/04/2019 [facility] Urine cannabinoids detection by screening method NEGATIVE NEGATIVE 05/04/2019 [facility] Urine methadone screen NEGATIVE NEGATIVE 05/04/2019 [facility] Urine urobilinogen measurement by test strip (mass/volume) 0.2 0.2 - 1 05/04/2019 [facility] Urine total bilirubin measurement (mass/volume) NEGATIVE NEGATIVE 05/04/2019 [facility] Urine erythrocytes detection NEGATIVE NEGATIVE 05/04/2019 [facility] Automated urine sediment leukocyte count by microscopy (number/high power field) 0-5 0 - 5 05/04/2019 [facility] Erythrocytes detection in urine sediment by light microscopy 0-5 0 - 5 05/04/2019 [facility] Bacteria detection in urine sediment by light microscopy RARE NONE 05/04/2019 [facility] Epithelial cells detection in urine sediment by light microscopy RARE NONE 05/04/2019 [facility] Urine human chorionic gonadotropin (hCG) detection NEGATIVE NEGATIVE 05/04/2019 [facility] Serum or plasma sodium measurement (moles/volume) 139 136 - 145 05/04/2019 [facility] Serum or plasma potassium measurement (moles/volume) 3.6 3.5 - 5.1 05/04/2019 [facility] Serum or plasma chloride measurement (moles/volume) 101 98 - 107 05/04/2019 [facility] Serum or plasma carbon dioxide, total measurement (moles/volume) 25 22 - 29 05/04/2019 [facility] Serum or plasma anion gap 16.6 8 - 16 05/04/2019 [facility] Serum or plasma urea nitrogen measurement (mass/volume) 7 7 - 26 05/04/2019 [facility] Serum or plasma creatinine measurement (mass/volume) 0.80 0.57 - 1.11 05/04/2019 [facility] Serum or plasma urea nitrogen/creatinine mass ratio 9 6 - 25 05/04/2019 [facility] Estimated glomerular filtration rate (GFR) determination > 60 60 05/04/2019 [facility] Glucose measurement 107 74 - 118 05/04/2019 [facility] Serum or plasma calcium measurement (mass/volume) 9.5 8.4 - 10.2 05/04/2019 [facility] Serum or plasma total bilirubin measurement (mass/volume) 0.3 0.2 - 1.2 05/04/2019 [facility] Aspartate Amino Transf (AST/SGOT) 17 5 - 34 05/04/2019 [facility] Serum or plasma alanine aminotransferase measurement (enzymatic activity/volume) 14 0 - 55 05/04/2019 [facility] Serum or plasma protein measurement (mass/volume) 7.7 6.5 - 8.1 05/04/2019 [facility] Serum or plasma albumin measurement (mass/volume) 4.3 3.5 - 5.0 05/04/2019 [facility] Plasma globulin measurement (mass/volume) 3.4 2.3 - 3.5 05/04/2019 [facility] Serum or plasma albumin/globulin mass ratio 1.3 0.8 - 2.0 05/04/2019 [facility] Serum or plasma alkaline phosphatase measurement (enzymatic activity/volume) 93 40 - 150 05/04/2019 [facility] Serum or plasma creatine kinase measurement (enzymatic activity/volume) 79 29 - 168 05/04/2019 [facility] Serum or plasma creatine kinase MB measurement (mass/volume) 1.30 0 - 5.0 05/04/2019 [facility] Troponin I measurement by highly sensitive enzyme immunoassay 0.008 0 - 0.300 05/04/2019 [facility] Serum or plasma amylase measurement (enzymatic activity/volume) 62 25 - 125 05/04/2019 [facility] Serum or plasma lipase measurement (enzymatic activity/volume) 21 8 - 78 05/04/2019 [facility] Prothrombin time (PT) in platelet poor plasma by coagulation assay 13.2 11.9 - 14.5 02/18/2019 [facility] INR in Platelet poor plasma by Coagulation assay 0.95 02/18/2019 [facility] Activated partial thromboplastin time (aPTT) in platelet poor plasma bycoagulation assay 27.0 23.8 - 35.5 02/18/2019 [facility] Serum or plasma magnesium measurement (mass/volume) 2.2 1.3 - 2.1 02/18/2019 [facility] Automated blood basophil count (count/volume) Automated blood basophil count (count/volume) 0.0 0.0 - 0.1 04/16/2018 [facility] Automated blood basophil count as percentage of total leukocytes Automated blood basophil count as percentage of total leukocytes 0.6 0.0 - 1.0 04/16/2018 [facility] Automated blood eosinophil count Automated blood eosinophil count 0.1 0.0 - 0.4 04/16/2018 [facility] Automated blood eosinophil count as percentage of total leukocytes Automated blood eosinophil count as percentage of total leukocytes 1.2 0.0 - 6.0 04/16/2018 [facility] Automated blood hematocrit (volume fraction) Automated blood hematocrit (volume fraction) 39.8 34.2 - 44.1 04/16/2018 [facility] Automated blood lymphocyte count as percentage ot total leukocytes Automated blood lymphocyte count as percentage ot total leukocytes 23.8 18.0 - 39.1 04/16/2018 [facility] Automated blood monocyte count as percentage of total leukocytes Automated blood monocyte count as percentage of total leukocytes 7.3 4.4 - 11.3 04/16/2018 [facility] Automated blood neutrophil count Automated blood neutrophil count 4.5 2.1 - 6.9 04/16/2018 [facility] Automated blood platelet count (count/volume) Automated blood platelet count (count/volume) 189 140 - 360 04/16/2018 [facility] Automated blood segmented neutrophil count as percentage of total leukocytes Automated blood segmented neutrophil count as percentage of total leukocytes 66.7 38.7 - 80.0 04/16/2018 [facility] Automated erythrocyte mean corpuscular hemoglobin (mass per erythrocyte) Automated erythrocyte mean corpuscular hemoglobin (mass per erythrocyte) 27.5 28 - 32 04/16/2018 [facility] Automated erythrocyte mean corpuscular hemoglobin concentration measurement (mass/volume) Automated erythrocyte mean corpuscular hemoglobin concentration measurement (mass/volume) 32.9 31 - 35 04/16/2018 [facility] Automated erythrocyte mean corpuscular volume Automated erythrocyte mean corpuscular volume 83.6 81 - 99 04/16/2018 [facility] Blood erythrocytes automated count (number/volume) Blood erythrocytes automated count (number/volume) 4.76 3.6 - 5.1 04/16/2018 [facility] Blood hemoglobin measurement (moles/volume) Blood hemoglobin measurement (moles/volume) 13.1 12.0 - 16.0 04/16/2018 [facility] Blood leukocytes automated count (number/volume) Blood leukocytes automated count (number/volume) 6.73 4.8 - 10.8 04/16/2018 [facility] Blood lymphocytes count (number/volume) Blood lymphocytes count (number/volume) 1.6 1.0 - 3.2 04/16/2018 [facility] Blood monocytes automated count (number/volume) Blood monocytes automated count (number/volume) 0.5 0.2 - 0.8 04/16/2018 [facility] Estimated glomerular filtration rate (GFR) determination Estimated glomerular filtration rate (GFR) determination >60 60 04/16/2018 [facility] Glucose measurement Glucose measurement 88 74 - 118 04/16/2018 [facility] Plasma globulin measurement (mass/volume) Plasma globulin measurement (mass/volume) 3.5 2.3 - 3.5 04/16/2018 [facility] Serum or plasma alanine aminotransferase measurement (enzymatic activity/volume) Serum or plasma alanine aminotransferase measurement (enzymatic activity/volume) 12 0 - 55 04/16/2018 [facility] Serum or plasma albumin measurement (mass/volume) Serum or plasma albumin measurement (mass/volume) 4.1 3.5 - 5.0 04/16/2018 [facility] Serum or plasma albumin/globulin mass ratio Serum or plasma albumin/globulin mass ratio 1.2 0.8 - 2.0 04/16/2018 [facility] Serum or plasma alkaline phosphatase measurement (enzymatic activity/volume) Serum or plasma alkaline phosphatase measurement (enzymatic activity/volume) 95 40 - 150 04/16/2018 [facility] Serum or plasma amylase measurement (enzymatic activity/volume) Serum or plasma amylase measurement (enzymatic activity/volume) 54 25 - 125 04/16/2018 [facility] Serum or plasma anion gap Serum or plasma anion gap 12.5 8 - 16 04/16/2018 [facility] Serum or plasma calcium measurement (mass/volume) Serum or plasma calcium measurement (mass/volume) 9.4 8.4 - 10.2 04/16/2018 [facility] Serum or plasma carbon dioxide, total measurement (moles/volume) Serum or plasma carbon dioxide, total measurement (moles/volume) 25 22 - 29 04/16/2018 [facility] Serum or plasma chloride measurement (moles/volume) Serum or plasma chloride measurement (moles/volume) 105 98 - 107 04/16/2018 [facility] Serum or plasma creatinine measurement (mass/volume) Serum or plasma creatinine measurement (mass/volume) 0.78 0.57 - 1.11 04/16/2018 [facility] Serum or plasma lipase measurement (enzymatic activity/volume) Serum or plasma lipase measurement (enzymatic activity/volume) 17 8 - 78 04/16/2018 [facility] Serum or plasma potassium measurement (moles/volume) Serum or plasma potassium measurement (moles/volume) 3.5 3.5 - 5.1 04/16/2018 [facility] Serum or plasma protein measurement (mass/volume) Serum or plasma protein measurement (mass/volume) 7.6 6.5 - 8.1 04/16/2018 [facility] Serum or plasma sodium measurement (moles/volume) Serum or plasma sodium measurement (moles/volume) 139 136 - 145 04/16/2018 [facility] Serum or plasma total bilirubin measurement (mass/volume) Serum or plasma total bilirubin measurement (mass/volume) 0.4 0.2 - 1.2 04/16/2018 [facility] Serum or plasma urea nitrogen measurement (mass/volume) Serum or plasma urea nitrogen measurement (mass/volume) 5 7 - 26 04/16/2018 [facility] Serum or plasma urea nitrogen/creatinine mass ratio Serum or plasma urea nitrogen/creatinine mass ratio 6 6 - 25 04/16/2018 [facility] Red Cell Distribution Width 13.9 11.7 - 14.4 04/16/2018 [facility] IM GRANULOCYTES % 0.4 0.0 - 1.0 04/16/2018 [facility] Absolute Immature Granulocyte (auto 0.03 0 - 0.1 04/16/2018 [facility] Aspartate Amino Transf (AST/SGOT) 15 5 - 34 04/16/2018 [facility] Automated urine sediment leukocyte count by microscopy (number/high power field) Automated urine sediment leukocyte count by microscopy (number/high power field) <5 0 - 5 04/16/2018 [facility] Bacteria detection in urine sediment by light microscopy Bacteria detection in urine sediment by light microscopy RARE NONE 04/16/2018 [facility] Epithelial cells detection in urine sediment by light microscopy Epithelial cells detection in urine sediment by light microscopy FEW NONE 04/16/2018 [facility] Erythrocytes detection in urine sediment by light microscopy Erythrocytes detection in urine sediment by light microscopy <10 0 - 5 04/16/2018 [facility] Specific gravity of Urine by Test strip Specific gravity of Urine by Test strip 1.005 1.010 - 1.025 04/16/2018 [facility] Urine clarity Urine clarity CLEAR CLEAR 04/16/2018 [facility] Urine color determination Urine color determination YELLOW YELLOW 04/16/2018 [facility] Urine erythrocytes detection Urine erythrocytes detection TRACE NEGATIVE 04/16/2018 [facility] Urine glucose detection Urine glucose detection NEGATIVE NEGATIVE 04/16/2018 [facility] Urine ketones detection by automated test strip Urine ketones detection by automated test strip NEGATIVE NEGATIVE 04/16/2018 [facility] Urine leukocyte esterase detection by dipstick Urine leukocyte esterase detection by dipstick NEGATIVE NEGATIVE 04/16/2018 [facility] Urine nitrite detection Urine nitrite detection NEGATIVE NEGATIVE 04/16/2018 [facility] Urine pH measurement by automated test strip Urine pH measurement by automated test strip 7 5 - 7 04/16/2018 [facility] Urine protein measurement by test strip (mass/volume) Urine protein measurement by test strip (mass/volume) NEGATIVE NEGATIVE 04/16/2018 [facility] Urine total bilirubin measurement (mass/volume) Urine total bilirubin measurement (mass/volume) NEGATIVE NEGATIVE 04/16/2018 [facility] Urine urobilinogen measurement by test strip (mass/volume) Urine urobilinogen measurement by test strip (mass/volume) 0.2 0.2 - 1 04/16/2018 [facility] Urine human chorionic gonadotropin (hCG) detection Urine human chorionic gonadotropin (hCG) detection NEGATIVE NEGATIVE 03/16/2018 [facility] Barbiturates screen, urine Barbiturates screen, urine NEGATIVE NEGATIVE 12/15/2017 [facility] Urine amphetamines detection by screen method > 1000 ng/mL Urine amphetamines detection by screen method > 1000 ng/mL NEGATIVE NEGATIVE 12/15/2017 [facility] Urine benzodiazepines detection by screening method Urine benzodiazepines detection by screening method NEGATIVE NEGATIVE 12/15/2017 [facility] Urine cannabinoids detection by screening method Urine cannabinoids detection by screening method NEGATIVE NEGATIVE 12/15/2017 [facility] Urine cocaine measurement (mass/volume) Urine cocaine measurement (mass/volume) NEGATIVE NEGATIVE 12/15/2017 [facility] Urine methadone screen Urine methadone screen NEGATIVE NEGATIVE 12/15/2017 [facility] Urine opiates screening test Urine opiates screening test NEGATIVE NEGATIVE 12/15/2017 [facility] Urine phencyclidine detection by screening method Urine phencyclidine detection by screening method NEGATIVE NEGATIVE 12/15/2017 [facility] Urine Methamphetamines Screen NEGATIVE NEGATIVE 12/15/2017 [facility] Pathology Reports No Data Provided for This [...] Date DC Date Status Source Discharged Inpatient [id number] ZOILA ARMIJO MD 10/03/2017 10/04/2017 [facility] Departed Emergency Room [id number] BUSHRA HEALY MD 10/06/2017 10/06/2017 [facility] Departed Emergency Room [id number] IWONA SMITH MD 12/15/2017 12/16/2017 [facility] Departed Emergency Room [id number] ERICH CARDENAS MD 03/16/2018 03/16/2018 [facility] Departed Emergency Room [id number] BLAKE WESTON MD 03/19/2018 03/20/2018 [facility] Departed Emergency Room [id number] IWONA SMITH MD 04/16/2018 04/16/2018 [facility] Departed Emergency Room [id number] BUSHRA HEALY MD 06/12/2018 06/12/2018 [facility] Departed Emergency Room [id number] BUSHRA HEALY MD 02/18/2019 02/18/2019 [facility] Departed Emergency Room [id number] IWONA SMITH MD 05/04/2019 05/04/2019 [facility] Procedures Procedure Code Date Perfomer Comments Source Computed tomography of abdomen and pelvis with contrast [id number] 02/18/2019 [facility] X-ray of chest, two views [id number] 12/15/2017 [facility] US Gallbladder [id number] 10/03/2017 [facility] Magnetic resonance cholangiopancreatography (MRCP) without then with contrast [id number] 10/03/2017 [facility] Assessment and Plan No Data Provided for This Section Plan of Care Plan of Care Date Source Discharge Date 05/04/19 3:15am Disposition HOME, SELF-CARE Condition at Discharge Stable Instructions/Education Provided Abdominal Pain - Adult [place] Diet - Adult Prescriptions See Medication Section Referrals MARIS CASEY MD Address: [address] [place] [address] [address] [place] [address] Additional Instructions/Education FOLLOW-UP WITH GI DOCTOR PREVIOUSLY DIRECTED. ADHERE TO BLAND DIET. 05/04/2019 [facility] Discharge Date 06/12/18 6:21am Disposition LEFT AFTER MEDICAL SCREENING Condition at Discharge Stable Forms Provided Work/School Excuse Prescriptions See Medication Section 06/12/2018 [facility] Social History Social History Date Source Smoking Status Start Date Stop Date Current every day smoker 05/04/2019 [facility] Family History No Data Provided for This Section Advance Directives Order Name Results Value Date Source Advance Directives Advance Directives Directive Response Recorded Date/Time Does the patient have an advance directive? No 11/12/16 11:02pm Do you have a Directive to Physician? No 05/04/19 1:09am Do you have a Medical Power of [employer]? No 05/04/19 1:09am Do you have an out of hospital Do Not Resuscitate Order? No 05/04/19 1:09am Do you have any special needs we should be aware of? No 05/04/19 1:09am Do you have a support person here with you today? No 05/04/19 1:09am Did patient receive Notice of Privacy Practices? Yes 05/04/19 1:09am Did patient receive patient rights and responsibilities? Yes 05/04/19 1:09am 05/04/2019 [facility] Advance Directives Advance Directives Directive Response Recorded Date/Time Does the patient have an advance directive? No 11/12/16 11:02pm If yes, is advance directive on file with [facility]? No 11/12/16 11:02pm If not on file with [facility] will patient provide a copy? Yes 12/16/17 2:47am Do you have a Directive to Physician? No 06/12/18 6:14am Do you have a Medical Power of [employer]? No 06/12/18 6:14am Do you have an [...] rights and responsibilities? No 06/12/18 6:14am 06/12/2018 [facility] Functional Status No Data Provided for This Section
--- NOTE | 2019-05-27 21:36 | Diagnostic Imaging Report ---
EXAMINATION: CHEST 2 VIEWS INDICATION: ^COUGH X3 WEEKS ^[id number] ^[id number] COMPARISON: None FINDINGS: PA and lateral views TUBES and LINES: None. LUNGS: Lungs are well inflated. There is no evidence of pneumonia or pulmonary edema. PLEURA: No pleural effusion or pneumothorax. HEART AND MEDIASTINUM: The cardiomediastinal silhouette is unremarkable. BONES AND SOFT TISSUES: No focal osseous lesions. Soft tissues are unremarkable. UPPER ABDOMEN: No free air under the diaphragm. Cholecystectomy clips. IMPRESSION: No acute thoracic abnormality. Signed by: Dr. Parker Michaels MD on 05/27/2019 9:33 PM
[2019-05-27] MEDS ORDERED: PREDNISONE50 MG PO (21:52)
[2019-05-27] MEDS ORDERED: KETOROLAC TROMETHAMINE 60 MG/2 ML VIAL ONE (23:19)
== END 2019-05-27 21:40 | disposition home or self-care (01) ==
LOC: ER 19:09
DX: R53.1 Weakness (principal); B34.9 Viral infection, unspecified; I10 Essential (primary) hypertension; E78.5 Hyperlipidemia, unspecified; F41.9 Anxiety disorder, unspecified
CPT/HCPCS: 71046; 99283; J1885